=== PATIENT | female | born 1965 | race Caucasian/White ===

== ENCOUNTER 2016-09-05 19:10 | Emergency (ER) | payer OTHER ==
--- NOTE | 2016-09-05 19:56 | ER Document Report ---
ED Medical Screen (RME) - General Stated Complaint: HEAD INJURY/AT WORK Time seen by provider: 19:51 Mode of Arrival: Ambulatory Information source: Patient Notes: 51-year-old female presents to ED for facial and head pain. She states she tripped over a rug yesterday and face planted onto a concrete floor healing right between her eyes upon the bridge of her nose. With pain in her left hand and right upper arm. With back pain with a history of a back fusion. She states she started with a fever this afternoon up to 102 with a little bit of a cough. States she's been thrown up since this morning. She states she has a history of migraines. Discussed patient with Dr. Pratt. We will order a CT of the head face and cervical spine. I have greeted and performed a rapid initial assessment of this patient. A comprehensive ED assessment and evaluation of the patient, analysis of test results and completion of medical decision making process will be conducted by an additional ED providers. TRAVEL OUTSIDE OF THE [place] IN LAST 30 DAYS: No - Related Data Allergies/Adverse Reactions: No Known Allergies Allergy (Verified 07/05/12 20:25) Past Medical History Neurological Medical History: Reports: Hx Migraine Past Surgical History: Reports: Hx Appendectomy, Hx Section, Hx Orthopedic Surgery - Immunizations Hx Diphtheria, Pertussis, Tetanus Vaccination: Yes Physical Exam - Vital signs Vitals: Temp Pulse Resp BP Pulse Ox 100.5 F H 102 H 16 96/68 L 94 09/05/16 19:45 09/05/16 19:45 09/05/16 19:45 09/05/16 19:45 09/05/16 19:45 Course - Vital Signs Vital signs: Temp Pulse Resp BP Pulse Ox 100.5 F H 102 H 16 96/68 L 94 09/05/16 19:45 09/05/16 19:45 09/05/16 19:45 09/05/16 19:45 09/05/16 19:45
[2016-09-05 21:11] LABS: ABSOLUTE LYMPHOCYTES (AUTO) 0.7 10^3/uL (0.5-4.7); ABSOLUTE MONOCYTES (AUTO) 0.7 10^3/uL (0.1-1.4); ABSOLUTE NEUT (AUTO) 4.9 10^3/uL (1.7-8.2); BASOPHILS % (AUTO) 0.6 % (0-2); EOSINOPHILS % (AUTO) 0.6 % (0-6); HEMOGLOBIN 14.5 g/dL (12.0-15.5); HGB HCT DIFFERENCE -0.5; LYMPHOCYTES % (AUTO) 11.4 % (13-45); MEAN CORPUSCULAR HEMOGLOBIN 30.8 pg (27.0-33.4); MEAN CORPUSCULAR VOLUME 94 fl (80-97); MONOCYTES % (AUTO) 11.5 % (3-13); RED BLOOD COUNT 4.71 10^6/uL (3.72-5.28); RED CELL DISTRIBUTION WIDTH 13.8 % (11.5-14.0); SEGMENTED NEUTROPHILS % (AUTO) 75.9 % (42-78); WHITE BLOOD COUNT 6.5 10^3/uL (4.0-10.5)
[2016-09-05 21:24] LABS: ALANINE AMINOTRANSFERASE 17 U/L (9-52); ALBUMIN 4.7 g/dL (3.5-5.0); ALKALINE PHOSPHATASE 83 U/L (38-126); ANION GAP 11 (5-19); ASPARTATE AMINO TRANSFERASE 16 U/L (14-36); BILIRUBIN,TOTAL 0.6 mg/dL (0.2-1.3); BLOOD UREA NITROGEN 10 mg/dL (7-20); CALCIUM 9.8 mg/dL (8.4-10.2); CARBON DIOXIDE 23 mmol/L (22-30); CHLORIDE 105 mmol/L (98-107); CREATININE RESULT 0.81 mg/dL (0.52-1.25); GLUCOSE 102 mg/dL (75-110); SODIUM 139.2 mmol/L (137-145); TOTAL PROTEIN 7.7 g/dL (6.3-8.2)
[2016-09-06] MEDS ORDERED: KETOROLAC TROMETHAMINE INJ/PF 30 MG/1 ML SDV IV ONE (00:21)
[2016-09-06] MEDS ORDERED: PROCHLORPERAZINE EDISYLATE INJ 10 MG/2 ML VIAL IV ONE (00:21)
[2016-09-06] MEDS ORDERED: DIPHENHYDRAMINE HCL 50 MG/ML VIAL IV ONE (00:21)
--- NOTE | 2016-09-06 00:25 | ER Document Report ---
ED General - General Chief Complaint: Head injury, Headache Stated Complaint: HEAD INJURY/AT WORK Mode of Arrival: Ambulatory Notes: Patient is a 51-year-old female presents after she tripped and fell at work yesterday falling and hitting her head on concrete. She did not lose consciousness and was able to get up off the floor on her own. However since that time she has had 2 episodes of vomiting and notes that she has had a continuous, dull throbbing headache of her central forehead just above the bridge of her nose. She has been trying to treat this with ibuprofen at home with no improvement. Nothing worsens the symptoms. States she attempted to go to work today but could not secondary to the pain. No history of similar injuries in the past. She has not seen her primary care doctor regarding today' s concerns. She denies any focal weakness, numbness, confusion, or neck pain. TRAVEL OUTSIDE OF THE [place] IN LAST 30 DAYS: No - Related Data Allergies/Adverse Reactions: No Known Allergies Allergy (Verified 07/05/12 20:25) Past Medical History - General Information source: Patient - Social History Smoking Status: Never Smoker Frequency of alcohol use: None Drug Abuse: None Lives with: Spouse/Significant other Family History: Reviewed & Not Pertinent Patient has suicidal ideation: No Patient has homicidal ideation: No Neurological Medical History: Reports: Hx Migraine Renal/ Medical History: Denies: Hx Peritoneal Dialysis Past Surgical History: Reports: Hx Appendectomy, Hx Section, Hx Orthopedic Surgery - Immunizations Hx Diphtheria, Pertussis, Tetanus Vaccination: Yes Review of Systems - Review of Systems Notes: Constitutional: Negative for fever. Eyes: Negative for visual changes. ENT: Negative for facial injury Cardiovascular: Negative for chest injury. Respiratory: Negative for shortness of breath. Gastrointestinal: Negative for abdominal injury. Positive for vomiting Genitourinary: Negative for genital injury Musculoskeletal: Negative for back injury. Skin: Positive for laceration/abrasions. Neurological: Positive for head injury. Physical Exam - Vital signs Vitals: Temp Pulse Resp BP Pulse Ox 100.5 F H 102 H 16 96/68 L 94 09/05/16 19:45 09/05/16 19:45 09/05/16 19:45 09/05/16 19:45 09/05/16 19:45 Interpretation: Hypotensive, Tachycardic Notes: PHYSICAL EXAMINATION: GENERAL appears mildly uncomfortable but in no acute distress HEAD: Atraumatic, normocephalic. EYES: Pupils equal round and reactive to light, extraocular movements intact, sclera anicteric, conjunctiva are normal. ENT: nares patent, no oral pharyngeal trauma. No hemotympanum, no Gandara's sign , no raccoon eyes. NECK: No midline cervical spine tenderness. Patient able to move their head to 45 bilaterally without any discomfort. LUNGS: Breath sounds clear to auscultation bilaterally and equal. No wheezes rales or rhonchi. HEART: Regular rate and rhythm without murmurs. CHEST WALL: No ecchymosis over the chest wall. ABDOMEN: Soft, nontender, normoactive bowel sounds. No guarding, no rebound. No abdominal bruising EXTREMITIES: Normal range of motion, no pitting or edema. No long bone deformities. BACK: No midline spinal tenderness, step-offs, or deformities. NEUROLOGICAL: Face symmetric. Tongue protrudes midline. Extraocular motions intact. Pupils are 2 mm and equally reactive. Normal speech, normal gait. 5 out of 5 strength in both the distal and proximal upper and lower extremities bilaterally. Sensation is grossly intact throughout. Finger to nose testing normal. Pronator drift normal. PSYCH: Normal mood, normal affect. SKIN: Warm, Dry, normal turgor, no rashes or lesions noted. Course - Re-evaluation Re-evalutation: 09/06/16 00:24 Presentation of head trauma in an otherwise well-appearing patient. No focal neurologic deficits on exam, no evidence of basilar skull fracture on exam without evidence of hemotympanum, raccoon eyes, or periauricular hematoma. No papilledema. Patient is not on anticoagulation. GCS is 15. No loss of consciousness. Patient did have several episodes of vomiting and therefore CT the head was indicated and obtained. No evidence of intracranial bleed. For unclear reasons, in triage with CT of the face and cervical spine were ordered. Patient is cleared by both Clare and nexus criteria so I do not see why CT the cervical spine was ordered. Likewise she has no extensive visible trauma to the face so again I'm uncertain as to why CT the face was ordered. However both of these tests are noted to be negative. Labs were likewise ordered and noted to be normal. Chest x-ray is clear. Vitals are within normal limits. I suspect patient's symptoms are secondary to concussion versus migrainous headache in the setting of recent head trauma. Will proceed with a migraine cocktail and reassess. 09/06/16 01:51 Patient has had complete resolution of her headache at this time. She is tolerating oral intake without difficulty and has not had any further vomiting. At this time will discharge with return precautions and follow-up recommendations. Verbal discharge instructions given a the bedside and opportunity for questions given. Medication warnings reviewed. Patient is in agreement with this plan and has verbalized understanding of return precautions and the need for primary care follow-up in the next 24-72 hours. - Vital Signs Vital signs: Temp Pulse Resp BP Pulse Ox 98.7 F 85 18 102/63 94 09/06/16 02:13 09/06/16 02:13 09/06/16 02:13 09/06/16 02:13 09/06/16 02:13 - Laboratory Result Diagrams: 09/05/16 20:50 09/05/16 20:50 Laboratory results interpreted by me: 09/05/16 20:50 Plt Count 148 L Lymphocytes % 11.4 L - Diagnostic Test Radiology reviewed: Image reviewed, Reports reviewed Radiology results interpreted by me: 09/06/16 03:41 CT head: No acute intracranial bleed Discharge - Discharge Clinical Impression: Head trauma Qualifiers: Encounter type: initial encounter Qualified Code(s): S09.90XA - Unspecified injury of head, initial encounter Condition: Good Disposition: HOME, SELF-CARE Additional Instructions: You have likely sustained a contusion (bruise) to your head. If you had a CT scan done, it did not show any evidence of serious injury or bleeding. Symptoms to expect from a concussion include nausea, mild to moderate headache, difficulty concentrating or sleeping, and mild lightheadedness. These symptoms should improve over the next few days to weeks. Return to the emergency department or follow-up with your primary care doctor if your symptoms are not improving over this time. Signs of a more serious head injury include vomiting , severe headache, excessive sleepiness or confusion, and weakness or numbness in your face, arms or legs. Return immediately to the Emergency Department if you experience any of these more concerning symptoms. Rest, avoid strenuous physical or mental activity, and avoid activities that could potentially result in another head injury until all your symptoms from this head injury are completely resolved for at least 2-3 weeks. If you participate in sports, get cleared by your doctor or wellness trainer before returning to play. You may take ibuprofen or acetaminophen over the counter according to label instructions for mild headache or scalp soreness. Forms: Return to Work
[2016-09-06] MEDS ORDERED: FENTANYL CITRATE INJ/PF 100 MCG/2 ML AMPUL IV ONE (01:14)
[2016-09-06 02:14] VITALS: BP 102/63
== END 2016-09-06 02:00 | disposition home or self-care (01) ==
LOC: ER 19:10
DX: S09.90XA Unspecified injury of head, initial encounter (principal); T14.8 Other injury of unspecified body region; W19.XXXA Unspecified fall, initial encounter; Y99.0 Civilian activity done for income or pay; R11.10 Vomiting, unspecified; R51 Headache; R00.0 Tachycardia, unspecified; I95.9 Hypotension, unspecified
CPT/HCPCS: 99284; 96374; 96375; 36415; 85025; 80053; 71020; 70450; 70486; 72125; J1200; J3010; J1885; J0780

== ENCOUNTER → 2016-12-06 | Outpatient (CLI) | payer OTHER | LOC: LAB 20:43 | PROVIDERS: ATTEND Nurse Practitioner Acute Care | DX: R30.0 Dysuria (principal) | CPT/HCPCS: 87086; 87088 ==

== ENCOUNTER 2017-03-29 19:14 | Emergency (ER) | payer OTHER ==
--- NOTE | 2017-03-29 21:47 | ER Document Report ---
ED General - General Chief Complaint: Abscess Stated Complaint: SKIN PROBLEM Time Seen by Provider: 03/29/17 21:40 Mode of Arrival: Ambulatory Information source: Patient, Dr. Office Notes: Patient is a 51-year-old female comes to emergency room complaining of having a cellulitis and abscess in her right upper thigh and groin area. Patient went to a local walk-in clinic and saw Dr. Forrester who sent her immediately to the ER and did not work her up. Patient states that has been her right groin for the last 3 days and has been getting worse. She did attempt to pop a pimple in the area to start with. It is been spreading and getting worse. Patient has allergies to adhesive and also is in pain management for chronic back problems. She denies any other medical problems. TRAVEL OUTSIDE OF THE [place] IN LAST 30 DAYS: No - HPI Onset: Other - 3 days worth. Onset/Duration: Sudden, Gradual, Persistent Quality of pain: Achy, Throbbing. denies: No pain Severity: Moderate Pain Level: 3 Associated symptoms: Nausea, Weakness Exacerbated by: Walking, Other Relieved by: Other - Nothing Similar symptoms previously: No Recently seen / treated by doctor: Yes - Related Data Allergies/Adverse Reactions: No Known Allergies Allergy (Verified 07/05/12 20:25) Past Medical History - General Information source: Patient - Social History Smoking Status: Former Smoker Drug Abuse: None Lives with: Family Family History: None, Reviewed & Not Pertinent Patient has suicidal ideation: No Patient has homicidal ideation: No - Past Medical History Cardiac Medical History: Reports: None Pulmonary Medical History: Reports: None EENT Medical History: Reports: None Neurological Medical History: Reports: Hx Migraine Endocrine Medical History: Reports: None Renal/ Medical History: Reports: None. Denies: Hx Peritoneal Dialysis GI Medical History: Reports: None Musculoskeltal Medical History: Reports Other - Chronic back pain Skin Medical History: Denies Hx Cellulitis, Denies Hx MRSA Psychiatric Medical History: Reports: None, Hx Anxiety Traumatic Medical History: Reports: None Infectious Medical History: Reports: None Past Surgical History: Reports: Hx Appendectomy, Hx Section, Hx Orthopedic Surgery - Immunizations Immunizations up to date: Yes Hx Diphtheria, Pertussis, Tetanus Vaccination: Yes Review of Systems - Review of Systems Constitutional: No symptoms reported EENT: No symptoms reported Cardiovascular: No symptoms reported Respiratory: No symptoms reported Gastrointestinal: No symptoms reported Genitourinary: No symptoms reported Female Genitourinary: No symptoms reported Musculoskeletal: See HPI, Gout Skin: See HPI, Other - Induration on right thigh as well as cellulitis extension into the right groin Hematologic/Lymphatic: No symptoms reported Neurological/Psychological: No symptoms reported -: Yes All other systems reviewed and negative Physical Exam - Vital signs Vitals: Temp Pulse Resp BP Pulse Ox 97.7 F 85 17 115/61 97 03/29/17 19:45 03/29/17 19:45 03/29/17 19:45 03/29/17 19:45 03/29/17 19:45 Interpretation: Normal - Notes Notes: Patient is a 51-year-old who appears to be somewhat uncomfortable. Patient states that she was sent by her walk-in clinic physician because of the infection. She states that increasing in discomfort and pain. - General General appearance: Anxious In distress: None - Respiratory Respiratory status: No respiratory distress Chest status: Nontender Breath sounds: Normal. No: Rhonchi, Stridor, Wheezing Chest palpation: Normal - Cardiovascular Rhythm: Regular Heart sounds: Normal auscultation Murmur: No - Abdominal Inspection: Normal Distension: No distension Bowel sounds: Normal Tenderness: Nontender. No: McBurney's point, Brice's sign, Rebound - Extremities General upper extremity: Normal color, Normal ROM General lower extremity: Tender, Normal weight bearing. No: Normal inspection, Normal ROM Thigh: Tender, Dislocation. No: Nontender - Neurological Neuro grossly intact: Yes Cognition: Normal Orientation: AAOx4 Story Coma Scale Eye Opening: Spontaneous Story Coma Scale Verbal: Oriented Story Coma Scale Motor: Obeys Commands Halima Coma Scale Total: 15 Speech: Normal Cranial nerves: Normal - Skin Skin Temperature: Warm Skin Moisture: Moist Skin Color: Erythema, Other - Examination of patient's right thigh shows her to be an area approximately 4 cm long by 2-1/2 cm wide with a central lesion. There is moderate amount of tenderness to palpation there is an extended area of pure cellulitis ranging out in a circumferential about 12 cm from that original lesion described. Patient also has as you palpate the right groin area has noticeable lymphadenopathy present. That is tender to palpation.. negative: [place] Character of irregularity: Urticarial Irregularity with: Swelling, Tenderness, Warmth Course - Vital Signs Vital signs: Temp Pulse Resp BP Pulse Ox 98.1 F 72 16 103/63 95 03/29/17 23:58 03/29/17 23:58 03/29/17 23:58 03/29/17 23:58 03/29/17 23:58 - Laboratory Result Diagrams: 03/29/17 22:06 03/29/17 22:06 Laboratory results interpreted by me: 03/29/17 22:06 Chloride 108 H - Transfer of Care Notes: 03/29/17 23:10 I discussed the case with he reviewed the return of the labs in the history on patient's presentation and we are going to place her on Bactrim DS 2 tabs twice a day with Keflex 500 4 times daily and have her return to your in 24 -48 hours for a recheck. Procedures - Incision and Drainage Right Medial Groin Type: Complex, Single Anesthetic type: 1% Lidocaine mL's of anesthetic: 8 Blade size: 11 I&D procedure: Betadine prep applied, Shurclens applied Incision Method: Incision made by scalpel Amount/type of drainage: Moderate amount of thick whitish Notes: 03/30/17 00:37 After the I&D was performed to use the curved forceps to break up the loculations in the opening. There is still more drainage noted after using the curved forceps to break up the loculations. I then packed the area with iodoform probably about 6 inches. Discharge - Discharge Clinical Impression: Abscess Cellulitis Qualifiers: Site of cellulitis: other site Qualified Code(s): L03.818 - Cellulitis of other sites Condition: Stable Disposition: HOME, SELF-CARE Instructions: Abscess ([facility]), Cephalexin ([facility]), MRSA Cellulitis ([facility]), Trimethoprim-Sulfa ([facility]) Additional Instructions: Home and rest. Medication as prescribed. Use the warm moist compresses as we discussed 3-4 times a day. He may take a shower but do not sit in the bathtub or get in the leg ocean or stream. It was we discussed also that if for any reason the packing comes out it is okay just keep the moist compresses going. I would like to see back here in 48 hours for a recheck or sooner if it does not appear to be getting better or if should get worse. Prescriptions: Cephalexin Monohydrate [Keflex 500 mg Capsule] 500 mg PO Q6H 7 Days #28 capsule Fluconazole [Diflucan] 150 mg PO ONCE #2 tablet Sulfamethoxazole/Trimethoprim [Bactrim Ds Tablet] 2 tab PO BID 5 Days #20 tablet Referrals: SANTHOSH MCGOVERN FNP [Primary Care Provider] - Follow up as needed
[2017-03-29] MEDS ORDERED: CLINDAMYCIN PHOSPHATE INJ 300 MG/2 ML SDV IV ONE (21:48)
[2017-03-29 22:24] LABS: ABSOLUTE BASOPHILS # (AUTO) 0.1 10^3/uL (0.0-0.2); ABSOLUTE EOSINOPHILS # (AUTO) 0.3 10^3/uL (0.0-0.6); ABSOLUTE LYMPHOCYTES (AUTO) 2.9 10^3/uL (0.5-4.7); ABSOLUTE MONOCYTES (AUTO) 0.7 10^3/uL (0.1-1.4); ABSOLUTE NEUT (AUTO) 6.2 10^3/uL (1.7-8.2); BASOPHILS % (AUTO) 1.1 % (0-2); EOSINOPHILS % (AUTO) 2.8 % (0-6); HEMOGLOBIN 13.5 g/dL (12.0-15.5); HGB HCT DIFFERENCE 0.5; LYMPHOCYTES % (AUTO) 28.7 % (13-45); MEAN CORPUSCULAR HEMOGLOBIN 32.2 pg (27.0-33.4); MEAN CORPUSCULAR HGB CONC 33.8 g/dL (32.0-36.0); MEAN CORPUSCULAR VOLUME 95 fl (80-97); MONOCYTES % (AUTO) 7.2 % (3-13); RED CELL DISTRIBUTION WIDTH 13.3 % (11.5-14.0); SEGMENTED NEUTROPHILS % (AUTO) 60.2 % (42-78); WHITE BLOOD COUNT 10.3 10^3/uL (4.0-10.5)
[2017-03-29 22:45] LABS: ANION GAP 9 (5-19); BLOOD UREA NITROGEN 8 mg/dL (7-20); CALCIUM 9.6 mg/dL (8.4-10.2); CARBON DIOXIDE 25 mmol/L (22-30); CHLORIDE 108 mmol/L (98-107); CREATININE RESULT 0.69 mg/dL (0.52-1.25); GLUCOSE 88 mg/dL (75-110); POTASSIUM 3.6 mmol/L (3.6-5.0); SODIUM 142.4 mmol/L (137-145)
[2017-03-30] VITALS: BP 103/63
== END 2017-03-29 23:58 | disposition home or self-care (01) ==
LOC: ER 19:14
PROC: 0H9HXZZ Drainage of Right Upper Leg Skin, External Approach (ICD-10-PCS; principal; 2017-03-29)
DX: L02.415 Cutaneous abscess of right lower limb (principal); L03.818 Cellulitis of other sites; Z87.891 Personal history of nicotine dependence
CPT/HCPCS: 99283; 96365; 36415; 87070; 87205; 85025; 87075; 87077; 80048; 87186; 10060; A6266

== ENCOUNTER → 2017-06-14 | Outpatient (CLI) | payer OTHER ==
--- NOTE | 2017-06-15 16:38 | RADIOLOGY REPORT (SQ) ---
EXAM DESCRIPTION: MRI RT LOWER EXTREMITY WITHOUT COMPLETED DATE/TIME: 06/14/2017 9:09 pm REASON FOR STUDY: PAIN IN RIGHT ANKLE AND JOINTS OF RIGHT FOOT M25.571 PAIN IN RIGHT ANKLE AND JOIN TS OF RIGHT FOOT COMPARISON: None. TECHNIQUE: T1-weighted, T2-weighted, and gradient echo noncontrast multiplanar imaging of the right foot. LIMITATIONS: None. FINDINGS: MARROW SIGNAL: No marrow signal alteration. No occult fracture. No evidence for osteo ne crosis. JOINT EFFUSION: No significant effusions. PLANTAR FASCIA: Normal as visualized. TARSOMETATARSAL AND TOE ARTICULATIONS: Anatomic. Mild degenerative changes first metatarsal phalange al joint. INTERMETATARSAL SPACES AND PLANTAR PLATES: Intact. No soft tissue mass to suggest a neuroma. SOFT TISSUES: Well-circumscribed subcutaneous lesion between the heads of the 1st and 2nd metatarsals which is intermediate on T1 and heterogeneously bright on T2. Some internal septations. Lesion is superficial to the flexor tendons. OTHER: No other significant finding. IMPRESSION: Probable ganglion cyst. Recommend the patient return for fat sat T1 and T1 post contras t sequences to exclude other etiologies. TECHNICAL DOCUMENTATION: JOB ID: [id number] [employer]- All Rights Reserved
== END ==
LOC: RAD 19:59
PROVIDERS: ATTEND Podiatrist Foot Surgery
DX: M25.571 Pain in right ankle and joints of right foot (principal)

== ENCOUNTER → 2017-08-07 | Outpatient (CLI) | payer OTHER ==
[~2017-08-07] MED LIST: DIAZEPAM 5 MG TABLET ONE
--- NOTE | 2017-08-07 10:17 | RADIOLOGY REPORT (SQ) ---
EXAM DESCRIPTION: CT LUMBAR SPINE WITHOUT COMPLETED DATE/TIME: 08/07/2017 10:00 am REASON FOR STUDY: SPONDYLOSIS W/O MYELOPATHY OR RADICULOPATHY, LUMBAR REGION (M47.816) M47.812 SPON DYLOSIS W/O MYELOPATHY OR RADICULOPATHY, CERVICA M47.816 SPONDYLOSIS W/O MYELOPATHY OR RADICULOPATHY , LUMBAR COMPARISON: None. TECHNIQUE: Axial images acquired through the lumbar spine without intravenous contrast. Images revi ewed with lung, soft tissue and bone windows. Reconstructed coronal and sagittal MPR images reviewe d. All images stored on PACS. All CT scanners at this facility use dose modulation, iterative reconstruction, and/or weight based d osing when appropriate to reduce radiation dose to as low as reasonably achievable (ALARA). [facility]: Dose Right [facility]: CareDose [facility]: Dose Right [facility]: Teradose 4D [facility]: [employer] RADIATION DOSE: CT Rad equipment meets quality standard of care and radiation dose reduction techniq ues were employed. CTDIvol: 6.8 mGy. DLP: 209 mGy-cm. mGy. LIMITATIONS: None. FINDINGS: SEGMENTATION: 5 non rib-bearing lumbar vertebra. Scoliosis convex left. ALIGNMENT: Normal. VERTEBRAL BODIES: No fractures. No dislocation. No acute findings. DISCS: Study limited by lack of intrathecal contrast. L1-L2: No significant protrusions. No significant stenosis. L2-L3: Degenerative spondylosis and degenerative disc disease at L2-3. L3-L4: Changes of lumbar fusion with pedicle screws and rods in place. Disc interspacer in place L4-L5: Changes of lumbar fusion with pedicle screws and rods in place. Disc interspacer in place. L5-S1: Changes of lumbar fusion with pedicle screws and rods in place. Disc interspace are in place. . HARDWARE: Status post lumbar fusion L3-5. No hardware failure. VISUALIZED RIBS: No fractures. SOFT TISSUES: No significant or acute finding in adjacent soft tissues. OTHER: Nonobstructive calculus l upper pole right kidney. IMPRESSION: Status post lumbar fusion at L3-5. Degenerative spondylosis and degenerative disc disea se L2-3. TECHNICAL DOCUMENTATION: JOB ID: [id number] Quality ID # [id number]: Final reports with documentation of one or more dose reduction techniques (e.g., Au tomated exposure control, adjustment of the mA and/or kV according to patient size, use of iterative reconstruction technique) 2010 [employer]- All Rights Reserved
--- NOTE | 2017-08-07 11:52 | RADIOLOGY REPORT (SQ) ---
EXAM DESCRIPTION: MRI CERVICAL SPINE WITHOUT COMPLETED DATE/TIME: 08/07/2017 11:21 am REASON FOR STUDY: SPONDYLOSIS W/O MYELOPATHY OR RADICULOPATHY, CERVICAL REGION (M47.812) M47.812 SP ONDYLOSIS W/O MYELOPATHY OR RADICULOPATHY, CERVICA M47.816 SPONDYLOSIS W/O MYELOPATHY OR RADICULOPAT HY, LUMBAR COMPARISON: None. TECHNIQUE: Sagittal and Axial imaging includes T1, T2, STIR and gradient echo sequences. LIMITATIONS: Patient motion. FINDINGS: ALIGNMENT: Reversal of lordotic curve. VERTEBRAE: Intact. BONE MARROW: Normal. No marrow replacement or reactive changes. DISCS: Desiccation multiple levels. HARDWARE: None in the spine. CORD AND BASE OF BRAIN: Normal in size and signal intensity. SOFT TISSUES: No soft tissue masses. C1-C2: No significant spinal stenosis. C2-C3: No significant spinal stenosis or exit foraminal stenosis. C3-C4: Mild spinal stenosis due to disc osteophyte complex. C4-C5: Mild spinal stenosis due disc osteophyte complex. Mild neural foraminal narrowing bilaterally . C5-C6: Mild -moderate spinal stenosis. Moderate right and severe left neural foraminal narrowing. C6-C7: Mild -moderate spinal stenosis. Moderate neural foraminal narrowing bilaterally. C7-T1: No significant spinal stenosis or exit foraminal stenosis. UPPER THORACIC: Incompletely imaged. No significant spinal stenosis or exit foraminal stenosis. OTHER: No other significant finding. IMPRESSION: Spinal stenosis at multiple levels, more advanced at C5-6 and C6-7. TECHNICAL DOCUMENTATION: JOB ID: [id number] [employer]- All Rights Reserved
== END ==
LOC: RAD 09:37
DX: M47.812 Spondylosis without myelopathy or radiculopathy, cervical region (principal); M47.816 Spondylosis without myelopathy or radiculopathy, lumbar region
CPT/HCPCS: 72131; 72141

== ENCOUNTER 2017-09-04 06:32 | Day surgery (SDC) | payer OTHER ==
[~2017-09-04 06:32] MED LIST changes: +CEFAZOLIN 1 GM/D5W RTU 1 GM/50 ML RTUPB IV PRN; -DIAZEPAM 5 MG TABLET ONE; +DIPHENHYDRAMINE HCL 50 MG/ML VIAL ONE; +FENTANYL CITRATE INJ/PF 100 MCG/2 ML AMPUL ONE; +KETOROLAC TROMETHAMINE 60 MG/2 ML SDV ONE; +LIDOCAINE 2% INJ-PF (20 MG/ML) 10 ML AMPUL ONE; +MIDAZOLAM 2 MG/2 ML INJ ONE; +PROPOFOL INJ 200 MG/20 ML VIAL IV ONE
[2017-09-04] MEDS ORDERED: BUPIVACAINE HCL 0.5 % INJ/PF 30 ML SDV ONE (07:07)
[2017-09-04] MEDS ORDERED: LIDOCAINE 2% INJ (20 MG/ML) 20 ML MDV ONE (07:07)
[2017-09-04] MEDS ORDERED: LIDOCAINE 0.5% INJ-PF (5 MG/ML) 50 ML SDV ONE (07:07)
[2017-09-04] MEDS ORDERED: NORMAL SALINE INJ/PF 0.9% 10 ML SDV ONE (07:07)
[2017-09-04] MEDS ORDERED: POLYMYXIN B SULFATE INJ 500000 UNIT VIAL ONE (07:07)
[2017-09-04] MEDS ORDERED: BACITRACIN INJ 50,000 UNIT VIAL ONE (07:07)
[2017-09-04] MEDS ORDERED: RINGERS SOLUTION,LACTATED 1,000 ML IV PRN (07:27)
[2017-09-04] MEDS: BUPIVACAINE INJ/PF LIPOSOME/PF 266 MG/20 ML SDV ONE ×2 (08:45)
--- NOTE | 2017-09-04 10:29 | [facility] OPERATIVE REPORT E ---
[facility] Operative Report NAME: JOSE ERWIN AGE: 52Y DATE OF SURGERY: 09/04/2017 ROOM: PREOPERATIVE DIAGNOSIS: SOFT TISSUE MASS PLANTAR ASPECT, RIGHT FOOT. POSTOPERATIVE DIAGNOSIS: SOFT TISSUE MASS, PROBABLE CYST, PLANTAR ASPECT, RIGHT FOOT. OPERATION: Excision of mass plantar aspect, right foot. SURGEON: LAM HENRIQUEZ DPM FOUR SLIDE MACHINE SETTER: Albaro Ohara DPM PROCEDURE: Following induction of IV regional local anesthesia, the right foot and leg was prepped and draped in the usual sterile manner. A pneumatic tourniquet was placed around the right ankle and inflated to 250 mmHg after exsanguination of the limb with the Esmarch bandage. The following surgical procedure was then performed: Excision of soft tissue mass, plantar aspect, right foot. Attention was directed to the plantar aspect of the right foot over the first metatarsal head where a mass could be palpated. The incision was made directly over the mass. It was approximately 5 cm in length. The incision was deepened via blunt dissection. All bleeders were clamped and Bovied as necessary for the purpose of hemostasis. Creamy white exudate started coming out of the mass. The mass was totally encapsulated. It was freed from its soft tissue attachments via sharp dissection utilizing Iris scissors. The mass measured 2.5 cm x 2 cm x approximately 0.8 cm in thickness. It was filled with a creamy white exudate like cottage cheese. This mass was sent for pathology. The site was inspected and there was no evidence of any other abnormal tissue. The site was then flushed with copious amounts of an antibacterial saline solution. The subcutaneous tissue was then coapted and maintained with a combination of 3-0 Vicryl and 4-0 Vicryl simple interrupted sutures. The incision was then injected with 9 mL of EXPAREL. The skin was then coapted and maintained utilizing horizontal mattress sutures of 5-0 nylon. A dry sterile dressing was then applied consisting of Joe silk, 4x4s, Conform, Kerlix, and Coban. The pneumatic tourniquet was released. It was noted that all digits were warm and viable, and the patient was transferred to the recovery room. DICTATING PHYSICIAN: LAM HENRIQUEZ DPM. [id number] PHY#: [id number] ID: [id number] JOB#: [id number] ACCT: [id number] cc:LAM HENRIQUEZ, DPM > ADALID
--- NOTE | 2017-09-04 10:39 | SURGICARE DISCHARGE SUMMARY E ---
[facility] Discharge Summary NAME: JOSE ERWIN AGE: 52Y ADMITTED: 09/04/2017 DISCHARGED: 09/04/2017 SURGICAL PROCEDURE: Excision of soft tissue mass, plantar aspect, right foot. POSTOPERATIVE DIAGNOSIS: Soft tissue mass, possible cyst, plantar aspect, right foot. SURGEON: Lam Bello DPM DELI BAKERY CLERK: Albaro Ohara DPM HOSPITAL COURSE: Patient was admitted to the [facility] with a chief complaint of a painful mass under her right foot. An ultrasound was performed. It was noted that there was an encapsulated mass. It did not appear to be a ganglion but was unsure what it was. The patient then went for a MRI which was positive, again, for a cyst but, again, not a ganglion. Since this mass was causing so much, the patient desired to have it surgically removed. She underwent the above surgical procedure without any complication and was transferred to the recovery room. Patient was discharged with an ice pack, a surgical shoe, postoperative instructions including no weightbearing on the surgical foot, and postoperative prescriptions for Percocet 5/325 mg, #60. She was given a followup appointment in the doctor's office in 1 week, and the patient was discharged from [facility]. DICTATING PHYSICIAN: LAM BELLO D.P.M. [id number] PHY#: [id number] ID: [id number] JOB#: [id number] ACCT: [id number] cc:LAM BELLO DPM >
== END 2017-09-04 10:19 | disposition home or self-care (01) ==
LOC: SC 06:32
PROVIDERS: ATTEND Podiatrist Foot Surgery
PROC: 0JBQ0ZZ Excision of Right Foot Subcutaneous Tissue and Fascia, Open Approach (ICD-10-PCS; principal; 2017-09-04 07:30)
DX: D21.21 Benign neoplasm of connective and other soft tissue of right lower limb, including hip (principal); G43.909 Migraine, unspecified, not intractable, without status migrainosus; F32.9 Major depressive disorder, single episode, unspecified; Z79.899 Other long term (current) drug therapy
CPT/HCPCS: 88304 ×2; 28039; J2250; J3490 ×6; J0690; J1200; J3010; J2704; C9290; 1470; J1885

== ENCOUNTER 2018-03-23 12:16 | Emergency (ER) | payer OTHER ==
[2018-03-23] MEDS ORDERED: ONDANSETRON HCL INJ/PF 4 MG/2 ML SDV IV ONE ×3 (12:40→14:00)
[2018-03-23] MEDS ORDERED: NORMAL SALINE 1000 ML 1,000 ML IV ONE (12:40)
[2018-03-23] MEDS ORDERED: HYDROMORPHONE HCL INJ/PF 2 MG/ML AMPULE IV ONE (12:41)
--- NOTE | 2018-03-23 12:42 | ER Document Report ---
ED Medical Screen (RME) - General Chief Complaint: Flank Pain Stated Complaint: FLANK PAIN Time Seen by Provider: 03/23/18 12:40 Mode of Arrival: Ambulatory Information source: Patient Notes: This is a 52-year-old female with a history of chronic back pain, chronic migraines who presents with left flank pain radiating into the groin. Patient states that the pain started yesterday. Patient denies any fever or chills. Patient in obvious discomfort and is writhing around in triage. Her surgical history includes hysterectomy. She is not allergic to any medicines. TRAVEL OUTSIDE OF THE [place] IN LAST 30 DAYS: No - Related Data Allergies/Adverse Reactions: adhesive tape Allergy (Verified 03/23/18 12:17) Blisters Past Medical History - Past Medical History Cardiac Medical History: Denies: Hx Heart Attack, Hx Hypertension Pulmonary Medical History: Denies: Hx Asthma Neurological Medical History: Reports: Hx Migraine. Denies: Hx Cerebrovascular Accident, Hx Seizures Renal/ Medical History: Denies: Hx Peritoneal Dialysis GI Medical History: Denies: Hx Hepatitis, Hx Hiatal Hernia, Hx Ulcer Skin Medical History: Denies Hx Cellulitis, Denies Hx MRSA Psychiatric Medical History: Reports: Hx Anxiety Infectious Medical History: Denies: Hx Hepatitis Past Surgical History: Reports: Hx Appendectomy, Hx Section, Hx Hysterectomy, Hx Orthopedic Surgery. Denies: Hx Mastectomy, Hx Open Heart Surgery, Hx Pacemaker - Immunizations Immunizations up to date: Yes Hx Diphtheria, Pertussis, Tetanus Vaccination: Yes Physical Exam - Vital signs Vitals: Temp Pulse Resp BP Pulse Ox 98.2 F 93 22 H 135/98 H 99 03/23/18 12:20 03/23/18 12:20 03/23/18 12:20 03/23/18 12:20 03/23/18 12:20 Course - Vital Signs Vital signs: Temp Pulse Resp BP Pulse Ox 98.2 F 93 22 H 135/98 H 99 03/23/18 12:20 03/23/18 12:20 03/23/18 12:20 03/23/18 12:20 03/23/18 12:20 Doctor's Discharge - Discharge Referrals: SANTHOSH MCGOVERN FNP [Primary Care Provider] - Follow up as needed
[2018-03-23 13:07] LABS: ABSOLUTE EOSINOPHILS # (AUTO) 0.1 10^3/uL (0.0-0.6); ABSOLUTE LYMPHOCYTES (AUTO) 1.3 10^3/uL (0.5-4.7); ABSOLUTE MONOCYTES (AUTO) 0.6 10^3/uL (0.1-1.4); ABSOLUTE NEUT (AUTO) 10.9 10^3/uL (1.7-8.2); BASOPHILS % (AUTO) 0.3 % (0-2); EOSINOPHILS % (AUTO) 0.9 % (0-6); HEMATOCRIT 42.1 % (36.0-47.0); LYMPHOCYTES % (AUTO) 9.8 % (13-45); MEAN CORPUSCULAR HGB CONC 33.2 g/dL (32.0-36.0); MEAN CORPUSCULAR VOLUME 94 fl (80-97); MONOCYTES % (AUTO) 4.3 % (3-13); PLATELET COUNT 212 10^3/uL (150-450); RED BLOOD COUNT 4.51 10^6/uL (3.72-5.28); RED CELL DISTRIBUTION WIDTH 14.1 % (11.5-14.0); SEGMENTED NEUTROPHILS % (AUTO) 84.7 % (42-78); TOTAL CELLS COUNTED % (AUTO) 100 %; WHITE BLOOD COUNT 12.8 10^3/uL (4.0-10.5)
[2018-03-23] MEDS ORDERED: MORPHINE SULFATE 10 MG/ML INJ IV ONE ×3 (13:12→15:23)
[2018-03-23] MEDS ORDERED: KETOROLAC TROMETHAMINE INJ/PF 30 MG/1 ML SDV IV ONE (13:12)
--- NOTE | 2018-03-23 13:20 | ER Document Report ---
ED GI/ - General Mode of Arrival: Ambulatory Information source: Patient TRAVEL OUTSIDE OF THE [place] IN LAST 30 DAYS: No <YOLANDE GRAHAM - Last Filed: 03/23/18 13:34> <TOVA WARREN - Last Filed: 03/23/18 15:22> - General Chief Complaint: Flank Pain Stated Complaint: FLANK PAIN Time Seen by Provider: 03/23/18 12:40 Notes: 52-year-old female that presents to the emergency department today with complaints of left flank pain that began a few days ago. Patient states the pain became very severe last night and has progressed from the left flank down into the left lower quadrant. Patient states she also feels that she has pain radiating into her left vaginal area mainly in the labia. Patient states when the pain sets in she is unable to get comfortable. (YOLANDE GRAHAM) The patient normally takes oxycodone 15 mg 4 times daily, and Nucynta 100 mg extended release twice daily for chronic pain management. (TOVA WARREN) - Related Data Allergies/Adverse Reactions: adhesive tape Allergy (Verified 03/23/18 12:17) Blisters Past Medical History - General Information source: Patient - Social History Smoking Status: Former Smoker Cigarette use (# per day): No Frequency of alcohol use: None Drug Abuse: None Lives with: Family Family History: None, Reviewed & Not Pertinent Patient has suicidal ideation: No Patient has homicidal ideation: No Neurological Medical History: Reports: Hx Migraine Psychiatric Medical History: Reports: Hx Anxiety Past Surgical History: Reports: Hx Appendectomy, Hx Section, Hx Hysterectomy, Hx Neurologic Surgery - Lumbar fusion, Hx Orthopedic Surgery - Immunizations Immunizations up to date: Yes Hx Diphtheria, Pertussis, Tetanus Vaccination: Yes <YOLANDE GRAHAM - Last Filed: 03/23/18 13:34> Past Surgical History: Reports: Hx Orthopedic Surgery <TOVA WARREN - Last Filed: 03/23/18 15:22> Review of Systems - Review of Systems Constitutional: No symptoms reported EENT: No symptoms reported Cardiovascular: No symptoms reported Respiratory: No symptoms reported Gastrointestinal: No symptoms reported Genitourinary: See HPI, Flank pain - left Female Genitourinary: No symptoms reported Musculoskeletal: No symptoms reported Skin: No symptoms reported Hematologic/Lymphatic: No symptoms reported Neurological/Psychological: No symptoms reported -: Yes All other systems reviewed and negative <YOLANDE GRAHAM - Last Filed: 03/23/18 13:34> Physical Exam <SANTOSYOLANDE - Last Filed: 03/23/18 13:34> <TOVA WARREN - Last Filed: 03/23/18 15:22> - Vital signs Vitals: Temp Pulse Resp BP Pulse Ox 98.2 F 93 22 H 135/98 H 99 03/23/18 12:20 03/23/18 12:20 03/23/18 12:20 03/23/18 12:20 03/23/18 12:20 - Notes Notes: Physical Exam: General: Alert, appears well. HEENT: Normocephalic. Atraumatic. PERRL. Extraocular movements intact. Oropharynx clear. Neck: Supple. Non-tender. Respiratory: No respiratory distress. Clear and equal breath sounds bilaterally. Cardiovascular: Regular rate and rhythm. Abdominal: LLQ ttp. No distension. Normal Bowel Sounds. Back: Left flank tenderness with palpation. No deformity or step off. Extremities: Moves all four extremities. Upper extremities: Normal inspection. Normal ROM. Lower extremities: Normal inspection. No edema. Normal ROM. Neurological: Normal cognition. AAOx4. Normal speech. Psychological: Normal affect. Normal Mood. Skin: Warm. Dry. Normal color. (YOLANDE GRAHAM) Course - Laboratory Result Diagrams: 03/23/18 12:35 03/23/18 12:35 <YOLANDE GRAHAM - Last Filed: 03/23/18 13:34> - Laboratory Result Diagrams: 03/23/18 12:35 03/23/18 12:35 - Diagnostic Test Radiology reviewed: Image reviewed, Reports reviewed - Renal CT shows a 3 mm stone in the distal left ureter near the UVJ. There is moderate hydronephrosis and hydroureter. <TOVA WARREN - Last Filed: 03/23/18 15:22> - Vital Signs Vital signs: Temp Pulse Resp BP Pulse Ox 98.2 F 93 22 H 135/98 H 99 03/23/18 12:20 03/23/18 12:20 03/23/18 12:20 03/23/18 12:20 03/23/18 12:20 - Laboratory Laboratory results interpreted by me: 0903/23/18 03/23/18 12:35 12:35 12:35 WBC 12.8 H RDW 14.1 H Seg Neutrophils % 84.7 H Lymphocytes % 9.8 L Absolute Neutrophils 10.9 H Chloride 109 H Carbon Dioxide 21 L Est GFR (Non-Af Amer) 59 L Glucose 132 H Direct Bilirubin 0.5 H Urine Blood MODERATE H Discharge <YOLANDE GRAHAM - Last Filed: 03/23/18 13:34> <TOVA WARREN - Last Filed: 03/23/18 15:22> - Discharge Clinical Impression: Ureteral stone with hydronephrosis, Renal colic on left side Condition: Stable Disposition: HOME, SELF-CARE Additional Instructions: Kidney Stone You are passing a kidney stone. These stones are usually due to increased calcium or uric acid concentrations in your urine. Stones within the kidney itself are not painful. The pain occurs as the stone leaves the kidney to pass down the long tube, called the ureter, leading to the bladder. If the stone is small, it will usually pass by itself. Most patients can pass the stone at home. You will usually receive medications for pain, nausea or vomiting, and sometimes a medication to assist in passing the kidney stone. However, if the pain is very severe or if vomiting prevents you from taking oral pain medications, you may need to return for further treatment. Drink three or four quarts of fluids per day. You will be given pain medication (if needed) and urine strainers. Strain all your urine to see if the stone passes. If your doctor has asked you to bring the stone in for analysis, return with the stone once it has passed. Return if pain or vomiting become severe, if you develop a high fever, if you are unable to pass your urine, or if other unusual symptoms occur. You have a 3 mm stone in the distal left ureter, very close to the bladder. You should drink plenty of fluids and strain your urine. Continue your regular pain medications. Add ibuprofen 800 mg every 8 hours, or 2 Aleve every 12 hours. Take Flomax once daily starting tomorrow until you pass the stone. Follow-up with your doctor or a local urologist if you do not improve in the next few days. RETURN TO THE EMERGENCY ROOM IF ANY NEW OR WORSENING SYMPTOMS. Prescriptions: Ondansetron [Zofran Odt 4 mg Tablet] 1 - 2 tab PO Q4H PRN #10 tab.rapdis PRN Reason: For Nausea/Vomiting Tamsulosin HCl [Flomax 0.4 mg Cap.sr] 0.4 mg PO DAILY #7 cap.sr.24h Referrals: SANTHOSH MCGOVERN FNP [Primary Care Provider] - Follow up as needed [facility] - Follow up as needed Scribe Attestation: 03/23/18 15:07 I personally performed the services described in the documentation, reviewed and edited the documentation which was dictated to the scribe in my presence, and it accurately records my words and actions. (TOVA WARREN) Scribe Documentation - Scribe Written by Adamaris:: Adamaris Hope, 03/23/2018 1339 acting as scribe for :: Fareed <YOLANDE GRAHAM - Last Filed: 03/23/18 13:34>
[2018-03-23 13:24] LABS: ALANINE AMINOTRANSFERASE 23 U/L (9-52); ALBUMIN 4.4 g/dL (3.5-5.0); ALKALINE PHOSPHATASE 112 U/L (38-126); ANION GAP 10 (5-19); ASPARTATE AMINO TRANSFERASE 18 U/L (14-36); BILIRUBIN,DIRECT 0.5 mg/dL (0.0-0.4); BILIRUBIN,TOTAL 0.6 mg/dL (0.2-1.3); BLOOD UREA NITROGEN 17 mg/dL (7-20); CALCIUM 9.8 mg/dL (8.4-10.2); CARBON DIOXIDE 21 mmol/L (22-30); CHLORIDE 109 mmol/L (98-107); GLUCOSE 132 mg/dL (75-110); SODIUM 140.4 mmol/L (137-145); TOTAL PROTEIN 7.5 g/dL (6.3-8.2)
[2018-03-23 13:31] LABS: APPEARANCE,URINE CLOUDY; BILIRUBIN,URINE NEGATIVE (NEGATIVE); COLOR,URINE YELLOW; GLUCOSE, URINE NEGATIVE (NEGATIVE); KETONES,URINE NEGATIVE (NEGATIVE); LEUKOCYTE ESTERASE,URINE NEGATIVE (NEGATIVE); NITRITE,URINE NEGATIVE (NEGATIVE); PROTEIN,URINE NEGATIVE (NEGATIVE); UROBILINOGEN,URINE NEGATIVE mg/dL (<2.0)
--- NOTE | 2018-03-23 14:06 | RADIOLOGY REPORT (SQ) ---
EXAM DESCRIPTION: CT LTD RENAL STONE PROTOCOL ON COMPLETED DATE/TIME: 03/23/2018 1:55 pm REASON FOR STUDY: left flank pain COMPARISON: None. TECHNIQUE: CT scan of the abdomen and pelvis performed without intravenous or oral contrast. Images reviewed with lung, soft tissue, and bone windows. Reconstructed coronal and sagittal MPR images revi ewed. All images stored on PACS. All CT scanners at this facility use dose modulation, iterative reconstruction, and/or weight based d osing when appropriate to reduce radiation dose to as low as reasonably achievable (ALARA). [facility]: Dose Right [facility]: CareDose [facility]: Dose Right [facility]: Teradose 4D [facility]: [employer] RADIATION DOSE: CT Rad equipment meets quality standard of care and radiation dose reduction techniq ues were employed. CTDIvol: 6.6 mGy. DLP: 346 mGy-cm.mGy. LIMITATIONS: None. FINDINGS: LOWER CHEST: No significant findings. No nodules or infiltrates. NON-CONTRASTED LIVER, SPLEEN, ADRENALS: Evaluation limited by lack of IV contrast. No identified sign ificant masses. PANCREAS: No masses. No peripancreatic inflammatory changes. GALLBLADDER: Gallstones. RIGHT KIDNEY AND URETER: Minimal nonobstructive nephrolithiasis. LEFT KIDNEY AND URETER: Moderate hydronephrosis with renal edema and perinephric stranding. Left ure ter dilated to the level of a 3 mm stone which lies just proximal to the UVJ within the distal ureter . AORTA AND RETROPERITONEUM: No aneurysm. No retroperitoneal masses or adenopathy. BOWEL AND PERITONEAL CAVITY: No obvious masses or inflammatory changes. No free fluid. APPENDIX: Surgically absent. PELVIS, BLADDER, AND ABDOMINAL WALL:No abnormal masses. No free fluid. Bladder normal. BONES: No significant findings. OTHER: No other significant finding. IMPRESSION: 1. Obstructive left uropathy. Moderate hydronephrosis due to a distal ureteral 3 mm ob structing stone. TECHNICAL DOCUMENTATION: JOB ID: [id number] Quality ID # [id number]: Final reports with documentation of one or more dose reduction techniques (e.g., Au tomated exposure control, adjustment of the mA and/or kV according to patient size, use of iterative reconstruction technique) 2010 [employer]- All Rights Reserved Reading location - IP/workstation name: [email or web address]
[2018-03-23] MEDS ORDERED: TAMSULOSIN HCL 0.4 MG CAP.SR.24H PO ONE (15:05)
[2018-03-23 15:32] VITALS: BP 102/57
== END 2018-03-23 15:37 | disposition home or self-care (01) ==
LOC: ER 12:16
DX: N13.2 Hydronephrosis with renal and ureteral calculous obstruction (principal); G89.29 Other chronic pain; Z79.891 Long term (current) use of opiate analgesic; Z91.048 Other nonmedicinal substance allergy status; Z87.891 Personal history of nicotine dependence
CPT/HCPCS: 96376; 99284; 96361; 96374; 96375; 36415; 85025; 80053; 81001; 76380; J1885; J2270; J1170; J2405

== ENCOUNTER 2018-03-24 21:58 | Inpatient (IN) | payer OTHER ==
[2018-03-25] MEDS ORDERED: CEFTRIAXONE INJ 1000 MG VIAL IV ONE (02:19)
[2018-03-25] MEDS ORDERED: HYDROMORPHONE HCL INJ/PF 2 MG/ML AMPULE IV ONE ×3 (02:19→06:02)
[2018-03-25] MEDS ORDERED: VANCOMYCIN HCL INJ 1000 MG VIAL IV ONE (02:19)
[2018-03-25 03:27] LABS: ABSOLUTE BASOPHILS # (AUTO) 0.1 10^3/uL (0.0-0.2); ABSOLUTE EOSINOPHILS # (AUTO) 0.3 10^3/uL (0.0-0.6); ABSOLUTE LYMPHOCYTES (AUTO) 2.6 10^3/uL (0.5-4.7); ABSOLUTE MONOCYTES (AUTO) 1.1 10^3/uL (0.1-1.4); ABSOLUTE NEUT (AUTO) 11.7 10^3/uL (1.7-8.2); BASOPHILS % (AUTO) 0.7 % (0-2); HEMOGLOBIN 13.5 g/dL (12.0-15.5); LYMPHOCYTES % (AUTO) 16.3 % (13-45); MEAN CORPUSCULAR HEMOGLOBIN 31.8 pg (27.0-33.4); MEAN CORPUSCULAR HGB CONC 33.8 g/dL (32.0-36.0); MEAN CORPUSCULAR VOLUME 94 fl (80-97); MONOCYTES % (AUTO) 6.8 % (3-13); PLATELET COUNT 205 10^3/uL (150-450); RED BLOOD COUNT 4.25 10^6/uL (3.72-5.28); SEGMENTED NEUTROPHILS % (AUTO) 74.2 % (42-78); TOTAL CELLS COUNTED % (AUTO) 100 %; WHITE BLOOD COUNT 15.8 10^3/uL (4.0-10.5)
[2018-03-25 04:09] LABS: ANION GAP 7 (5-19); BLOOD UREA NITROGEN 12 mg/dL (7-20); CALCIUM 9.3 mg/dL (8.4-10.2); CARBON DIOXIDE 27 mmol/L (22-30); CHLORIDE 107 mmol/L (98-107); GLUCOSE 108 mg/dL (75-110); POTASSIUM 3.6 mmol/L (3.6-5.0); SODIUM 141.4 mmol/L (137-145)
--- NOTE | 2018-03-25 04:39 | ER Document Report ---
ED General - General Chief Complaint: Possible Kidney Stone Stated Complaint: NECK PAIN Time Seen by Provider: 03/25/18 02:08 Notes: Patient is a 52-year-old female who presents with complaint of 2 separate complaints. First complaint is she still has some residual flank pain on the left side relation to kidney stones she was diagnosed with yesterday. She said the main reason when she came back is because she has pain and swelling and redness over the posterior aspect of her neck and into her head. When she was seen yesterday she was also seen for some crusting lesions in her scalp. At that time she did not have a large amount of solution swelling therefore is thought to most likely not be infectious. Patient says over last 24 hours the back of her head neck has become very swollen and indurated and red. Subjective fevers at home. Some nausea. She spiked a fever today of 101.2 at home. TRAVEL OUTSIDE OF THE [place] IN LAST 30 DAYS: No - Related Data Allergies/Adverse Reactions: adhesive tape Allergy (Verified 03/23/18 12:17) Blisters Past Medical History - Social History Smoking Status: Unknown if Ever Smoked Frequency of alcohol use: None Drug Abuse: None Family History: None, Reviewed & Not Pertinent Patient has suicidal ideation: No Patient has homicidal ideation: No - Past Medical History Cardiac Medical History: Denies: Hx Heart Attack, Hx Hypertension Pulmonary Medical History: Denies: Hx Asthma Neurological Medical History: Reports: Hx Migraine. Denies: Hx Cerebrovascular Accident, Hx Seizures Renal/ Medical History: Denies: Hx Peritoneal Dialysis GI Medical History: Denies: Hx Hepatitis, Hx Hiatal Hernia, Hx Ulcer Skin Medical History: Denies Hx Cellulitis, Denies Hx MRSA Psychiatric Medical History: Reports: Hx Anxiety Infectious Medical History: Denies: Hx Hepatitis Past Surgical History: Reports: Hx Appendectomy, Hx Section, Hx Hysterectomy, Hx Neurologic Surgery - Lumbar fusion, Hx Orthopedic Surgery. Denies: Hx Mastectomy, Hx Open Heart Surgery, Hx Pacemaker - Immunizations Immunizations up to date: Yes Hx Diphtheria, Pertussis, Tetanus Vaccination: Yes Review of Systems - Review of Systems Notes: My Normal Review Basic REVIEW OF SYSTEMS: CONSTITUTIONAL : Subjective fever EENT: Redness and swelling to the back of the neck and head. CARDIOVASCULAR: Denies chest pain. RESPIRATORY: Denies cough, cold, or chest congestion. Denies shortness of breath, difficulty breathing, or wheezing. GASTROINTESTINAL: Left flank pain. GENITOURINARY: Dark urine. FEMALE GENITOURINARY: Denies vaginal bleeding, abnormal or irregular periods. MUSCULOSKELETAL: Denies neck or back pain or joint pain or swelling. SKIN: Denies rash or skin lesions. NEUROLOGICAL: Denies altered mental status or loss of consciousness. Denies headache. Denies weakness or paralysis or loss of use of either side. Denies problems with gait or speech. Denies sensory or motor loss. ALL OTHER SYSTEMS REVIEWED AND NEGATIVE. Physical Exam - Vital signs Vitals: Temp Pulse Resp BP Pulse Ox 99.0 F 132 H 18 102/64 96 03/24/18 22:07 03/24/18 22:07 03/24/18 22:07 03/24/18 22:07 03/24/18 22:07 - Notes Notes: General Appearance: Well nourished, alert, cooperative, no acute distress, moderate obvious discomfort. Vitals: reviewed, See vital signs table. Head: Patient has significant swelling redness to the posterior scalp going down to the left posterior aspect of the neck. There is significant induration and redness but no fluctuance. Eyes: PERRL, EOMI, Conjuctiva clear Mouth: No decreasd moisture Throat: No tonsillar inflammation, No airway obstruction, No lymphadenopathy Neck: Supple, induration and redness to the left posterior aspect of the neck. Lungs: No wheezing, No rales, No rhonci, No accessory muscle use, good air exchange bilaterally. Heart: Normal rate, Regular rythm, No murmur, no rub Abdomen: Normal BS, soft, No rigidity, mild left-sided abdominal tenderness to palpation, No guarding, no rebound, no abdominal masses, no organomegaly Extremities: strength 5/5 in all extremities, good pulses in all extremities, no swelling or tenderness in the extremities, no edema. Skin: warm, dry, appropriate color, no rash Neuro: speech clear, oriented x 3, normal affect, responds appropriately to questions. Course - Re-evaluation Re-evalutation: 03/25/18 06:06 Patient's pain is improving some with the Dilaudid but still she has a painless of her neck. CT scan shows no evidence of abscess but I suspect that she could easily progress to an abscess within the next 24-48 hours due to the significant of induration and the fact that the redness and swelling of occurred quickly over the last 24 hours. I have given dose of vancomycin and Rocephin. Her urinalysis is negative. Is no signs of infection in conjunction with her kidney stone. Her kidney stone pain is actually fairly well controlled with her home medications and that seems to be less of an issue at this time. The main issue for admission is the infection affecting the posterior aspect of her neck. I have spoken with the hospitalist, Dr. Frye, who agrees to evaluate the patient for admission. Dictation of this chart was performed using voice recognition software; therefore, there may be some unintended grammatical errors. - Vital Signs Vital signs: Temp Pulse Resp BP Pulse Ox 99.0 F 132 H 18 102/64 96 03/24/18 22:07 03/24/18 22:07 03/24/18 22:07 03/24/18 22:07 03/24/18 22:07 - Laboratory Result Diagrams: 03/25/18 02:55 03/25/18 02:55 Laboratory results interpreted by me: 03/25/18 03/25/18 02:20 02:55 WBC 15.8 H Absolute Neutrophils 11.7 H Urine Blood LARGE H Discharge - Discharge Clinical Impression: Renal colic on left side Cellulitis Qualifiers: Site of cellulitis: neck Qualified Code(s): L03.221 - Cellulitis of neck Condition: Stable Disposition: ADMITTED OBSERVATION Admitting Provider: Hospitalist Unit Admitted: Medical Floor Referrals: SANTHOSH MCGOVERN FNP [Primary Care Provider] - Follow up as needed
--- NOTE | 2018-03-25 04:42 | RADIOLOGY REPORT (SQ) ---
EXAM DESCRIPTION: CT NECK CHEST WITH IV CONTRAST COMPLETED DATE/TME: 03/25/2018 02:27 CLINICAL HISTORY: 52 years, Female, neck swelling, cellulitis vs. abscess CREAT 0.99 COMPARISON: None. TECHNIQUE: Axial CT images of the neck soft tissues obtained following the uncomplicated intravenous administration of 75 mL Omnipaque 350. Sagittal and coronal reformatted images available. All CT scanners at this facility use dose modulation, iterative reconstruction, and/or weight based dosing when appropriate to reduce radiation dose to as low as reasonably achievable (ALARA). [facility]: Dose Right [facility]: CareDose [facility]: Dose Right [facility]: Teradose 4D [facility]: [employer] FINDINGS: Degenerative change of the visualized cervical spine. No acute abnormality identified within the intracranial contents. Visualized ribs are intact. No pneumothorax in the visualized lung apices. Orbits and globes are unremarkable. No abnormalities in the pharyngeal mucosal space, parapharyngeal space, or retropharyngeal space. No abnormalities visceral space. No definite abnormalities of the epiglottis. Visualized thyroid gland is unremarkable. Postoperative change in the left neck. No lymphadenopathy identified. No abnormalities of the parotid or submandibular glands. The tongue base is symmetric without enhancing mass. No abnormalities in the subcutaneous soft tissues of the face. Facial bones are intact. Paranasal sinuses and mastoid air cells are well aerated. There is fat stranding within the subcutaneous soft tissue of the posterolateral left neck. No well-circumscribed fluid collection. IMPRESSION: 1. Inflammatory change in the subcutaneous soft tissues of the posterolateral left neck. These findings are suggestive of cellulitis. No well-circumscribed fluid collection to suggest abscess formation. TECHNICAL DOCUMENTATION: Quality ID # 436: Final reports with documentation of one or more dose reduction techniques (e.g., Automated exposure control, adjustment of the mA and/or kV according to patient size, use of iterative reconstruction technique) 2010 [employer]- All Rights Reserved
[2018-03-25 05:31] LABS: APPEARANCE,URINE CLOUDY; BILIRUBIN,URINE NEGATIVE (NEGATIVE); COLOR,URINE YELLOW; GLUCOSE, URINE NEGATIVE (NEGATIVE); KETONES,URINE NEGATIVE (NEGATIVE); LEUKOCYTE ESTERASE,URINE NEGATIVE (NEGATIVE); NITRITE,URINE NEGATIVE (NEGATIVE); PROTEIN,URINE NEGATIVE (NEGATIVE); URINE SPECIFIC GRAVITY 1.015; UROBILINOGEN,URINE NEGATIVE mg/dL (<2.0)
--- NOTE | 2018-03-25 05:36 | RADIOLOGY REPORT (SQ) ---
EXAM DESCRIPTION: X-ray abdomen 1 view CLINICAL DATA: 52-year-old female with left-sided kidney stone. TECHNICAL DATA: A single AP supine x-ray of the abdomen was performed. Comparison: CT abdomen and pelvis performed on 03/23/2018.. FINDINGS: The bowel gas pattern is nonspecific and nonobstructive. There is contrast in the renal collecting systems related to the patient's recent contrast-enhanced CT scan. There is no evidence of hydronephrosis or definite hydroureter. The bladder is partially distended with contrast and is grossly unremarkable. No pathologic abdominal or pelvic calcifications are identified. There are surgical clips in the left hemipelvis. There are remote postsurgical changes of the lower lumbar spine consistent with posterior decompression and fusion of L3-L5. No abnormal air collections are identified. No focal soft tissue abnormalities are seen. No acute osseous abnormalities are identified. There is mild scoliosis of the lumbar spine convex to the left. IMPRESSION: 1. Nonspecific and nonobstructive bowel gas pattern. 2. No definite urinary tract calculus identified. 3. Postsurgical changes in the left hemipelvis and lower lumbar spine.
[2018-03-25] MEDS ORDERED: MAG HYDROX/AL HYDROX/SIMETH SUSP 30 ML UDCUP PO PRN (06:10)
[2018-03-25] MEDS ORDERED: IPRATROPIUM/ALBUTEROL 0.5-2.5 MG/3 ML AMPUL NEB PRN (06:10)
[2018-03-25] MEDS ORDERED: ACETAMINOPHEN 325 MG TABLET PO PRN (06:10)
[2018-03-25] MEDS ORDERED: VANCOMYCIN HCL 0 MG in DEXTROSE 5%-WATER 250 ML IV NR (06:15)
[2018-03-25 06:47] LABS: URINE AMPHETAMINES SCREEN NEGATIVE; URINE BARBITURATES SCREEN NEGATIVE; URINE BENZODIAZEPINES SCREEN NEGATIVE; URINE COCAINE SCREEN NEGATIVE; URINE MARIJUANA (THC) SCREEN NEGATIVE; URINE METHADONE SCREEN NEGATIVE; URINE PHENCYCLIDINE SCREEN NEGATIVE
--- NOTE | 2018-03-25 06:59 | PDOC H&P ---
History of Present Illness Admission Date/PCP: 03/25/18 06:21 GORDON JAMESON Patient complains of: Neck, scalp erythema and pain History of Present Illness: JOSE ERWIN is a 52 year old female with a past medical history of opiate dependent chronic pain, migraine headache and nephrolithiasis. She presents with 2 separate complaints. Seen yesterday for left-sided flank pain with hematuria and found to have a 3 mm stone she was discharged with instructions to hydrate however the symptoms have not completely resolved. She she was also evaluated for a swelling on her left posterior scalp which has greatly increased with erythema and pain prompting her reevaluation in the emergency room. She is found to have significant erythema and pain into the neck with a CT showing edema suggestive with cellulitis without abscess. Urinalysis is persistent with blood. She started on IV fluid empiric antibiotics and referred to the hospitalist for admission. She does admit multiple previous episodes of abscess requiring I&D but denies MRSA. Past Medical History Cardiac Medical History: Denies: Myocardial Infarction, Hypertension Pulmonary Medical History: Denies: Asthma Neurological Medical History: Reports: Migraine Denies: Seizures GI Medical History: Denies: Hepatitis, Hiatal Hernia Hematology: Denies: Anemia, Sickle Cell Disease Past Surgical History Past Surgical History: Reports: Appendectomy, Section, Hysterectomy, Orthopedic Surgery Denies: Amputation, Mastectomy, Pacemaker Social History Information Source: Patient Smoking Status: Current Every Day Smoker Frequency of Alcohol Use: None Drugs: None - Advance Directive Resuscitation Status: Full Code Family History Family History: None, Hypertension, Other - Recurrent superficial skin infections in mother and children Parental Family History Reviewed: Yes Children Family History Reviewed: Yes Sibling(s) Family History Reviewed.: Yes Medication/Allergy Home Medications: Sertraline HCl [Zoloft] 100 mg PO DAILY 07/05/12 Tizanidine HCl [Zanaflex 4 Mg Tablet] 4 mg PO TID 07/05/12 Etodolac [Lodine] 200 mg PO TID 08/27/17 Gabapentin Enacarbil [Horizant] 300 mg PO BID 08/27/17 Ondansetron [Zofran Odt] 4 mg PO DAILY 08/27/17 Quetiapine Fumarate [Seroquel] 100 mg PO DAILY 08/27/17 Tapentadol HCl [Nucynta] 75 mg PO TID 08/27/17 Ondansetron [Zofran Odt 4 mg Tablet] 1 - 2 tab PO Q4H PRN #10 tab.rapdis Tamsulosin HCl [Flomax 0.4 mg Cap.sr] 0.4 mg PO DAILY #7 cap.sr.24h 03/23/18 Allergies/Adverse Reactions: adhesive tape Allergy (Verified 03/23/18 12:17) Blisters Review of Systems Constitutional: ABSENT: chills, fever(s), headache(s), weight gain, weight loss Eyes: ABSENT: visual disturbances Ears: ABSENT: hearing changes Cardiovascular: ABSENT: chest pain, dyspnea on exertion, edema, orthropnea, palpitations Respiratory: ABSENT: cough, hemoptysis Gastrointestinal: ABSENT: abdominal pain, constipation, diarrhea, hematemesis, hematochezia, nausea, vomiting Genitourinary: ABSENT: dysuria, hematuria Musculoskeletal: ABSENT: joint swelling Integumentary: ABSENT: rash, wounds Neurological: ABSENT: abnormal gait, abnormal speech, confusion, dizziness, focal weakness, syncope Psychiatric: ABSENT: anxiety, depression, homidical ideation, suicidal ideation Endocrine: ABSENT: cold intolerance, heat intolerance, polydipsia, polyuria Hematologic/Lymphatic: ABSENT: easy bleeding, easy bruising Physical Exam Vital Signs: Temp Pulse Resp BP Pulse Ox 99.0 F 132 H 18 102/64 96 03/24/18 22:07 03/24/18 22:07 03/24/18 22:07 03/24/18 22:07 03/24/18 22:07 General appearance: PRESENT: cooperative, mild distress. ABSENT: disheveled Head exam: PRESENT: atraumatic, normocephalic, other - Mild erythema with induration, tenderness, to the left posterior scalp extending to the shoulder posteriorly and the anterior chest. No evidence of abscess or fluctuance Eye exam: PRESENT: conjunctiva pink, EOMI, PERRLA. ABSENT: scleral icterus Ear exam: PRESENT: normal external ear exam Mouth exam: PRESENT: moist, tongue midline Neck exam: ABSENT: carotid bruit, JVD, lymphadenopathy, thyromegaly Respiratory exam: PRESENT: clear to auscultation yany. ABSENT: rales, rhonchi, wheezes Cardiovascular exam: PRESENT: RRR, systolic murmur - Known ejection murmur. ABSENT: diastolic murmur, rubs Pulses: PRESENT: normal dorsalis pedis pul Vascular exam: PRESENT: normal capillary refill GI/Abdominal exam: PRESENT: normal bowel sounds, soft. ABSENT: distended, guarding, mass, organolmegaly, rebound, tenderness Rectal exam: PRESENT: deferred Extremities exam: PRESENT: full ROM. ABSENT: calf tenderness, clubbing, pedal edema Neurological exam: PRESENT: alert, awake, oriented to person, oriented to place , oriented to time, oriented to situation, CN II-XII grossly intact. ABSENT: motor sensory deficit Psychiatric exam: PRESENT: appropriate affect, normal mood. ABSENT: homicidal ideation, suicidal ideation Skin exam: PRESENT: dry, erythema, intact, warm. ABSENT: cyanosis, jaundice, normal color, pallor, skin tears Results Impressions: Soft Tissue Neck CT 03/25/18 02:27 IMPRESSION: 1. Inflammatory change in the subcutaneous soft tissues of the posterolateral left neck. These findings are suggestive of cellulitis. No well-circumscribed fluid collection to suggest abscess formation. TECHNICAL DOCUMENTATION: Quality ID # 436: Final reports with documentation of one or more dose reduction techniques (e.g., Automated exposure control, adjustment of the mA and/or kV according to patient size, use of iterative reconstruction technique) 2010 [employer]- All Rights Reserved KUB X-Ray 03/25/18 04:33 IMPRESSION: 1. Nonspecific and nonobstructive bowel gas pattern. 2. No definite urinary tract calculus identified. 3. Postsurgical changes in the left hemipelvis and lower lumbar spine. Assessment & Plan - Diagnosis (1) Cellulitis Qualifiers: Site of cellulitis: neck Qualified Code(s): L03.221 - Cellulitis of neck Is this a current diagnosis for this admission?: Yes Plan: Scalp cellulitis extending to the neck, CT soft tissue neck negative for fluid collection or abscess. Empiric antibiotics, symptomatic management, follow-up CBC and blood culture (2) Renal colic on left side Is this a current diagnosis for this admission?: Yes Plan: IV fluid challenge, empiric antibiotics, follow-up CBC and urine culture. (3) Chronic pain Is this a current diagnosis for this admission?: Yes Plan: Continue, outpatient medication regiment of Nucynta 100 every 12 and OxyContin 15 every 12 verified by current medication bottles of bedside - Time Time Spent: 30 to 50 Minutes - Inpatient Certification Medical Necessity: Need Close Monitoring Due to Risk of Patient Decompensation
[2018-03-25] MEDS: NORMAL SALINE 1000 ML 1,000 ML IV SCH ×2 (07:11→12:24)
[2018-03-25] MEDS: IPRATROPIUM/ALBUTEROL 0.5-2.5 MG/3 ML AMPUL NEB SCH ×2 (08:35→20:47)
[2018-03-25] MEDS: MORPHINE SULFATE 10 MG/ML INJ IV PRN ×5 (09:18→23:21)
[2018-03-25] MEDS: SERTRALINE HCL 50 MG TABLET PO SCH (09:19)
[2018-03-25] MEDS: DOCUSATE SODIUM 100 MG CAPSULE PO SCH ×2 (09:19→17:43)
[2018-03-25] MEDS ORDERED: TIZANIDINE HCL 4 MG TABLET PO SCH (10:00)
[2018-03-25] MEDS ORDERED: QUETIAPINE FUMARATE 100 MG TABLET PO SCH (10:00)
[2018-03-25] MEDS ORDERED: (PENDING PHARMACY ID) (Gabapentin Enacarbil [Horizant] 300 MG) PO SCH (10:00)
[2018-03-25] MEDS: KETOROLAC TROMETHAMINE INJ/PF 30 MG/1 ML SDV IV PRN ×2 (11:11→18:56)
[2018-03-25] MEDS: TAMSULOSIN HCL 0.4 MG CAP.SR.24H PO SCH (11:12)
[2018-03-25] MEDS ORDERED: ACYCLOVIR SODIUM INJ/PF 500 MG/10 ML SDV IV SCH (14:00)
--- NOTE | 2018-03-25 14:40 | PDOC PROGRESS REPORT ---
Subjective Progress Note for:: 03/25/18 Subjective:: JOSE ERWIN is a 52 year old female with a past medical history of opiate dependent chronic pain, migraine headache and nephrolithiasis. She presents with 2 separate complaints. Seen yesterday for left-sided flank pain with hematuria and found to have a 3 mm stone she was discharged with instructions to hydrate however the symptoms have not completely resolved. She she was also evaluated for a swelling on her left posterior scalp which has greatly increased with erythema and pain prompting her reevaluation in the emergency room. She is found to have significant erythema and pain into the neck with a CT showing edema suggestive with cellulitis without abscess. Urinalysis is persistent with blood. She started on IV fluid empiric antibiotics and referred to the hospitalist for admission. She does admit multiple previous episodes of abscess requiring I&D but denies MRSA Patient's notes that the area of tenderness and induration has extended down her neck to the border of the posterior sternocleido mastoid muscle. She states that she noticed some small blisterlike lesions on her scalp 3 days ago had scratched them and did not think much of it. The pain began to intensify yesterday and now is extending down her posterior scalp and neck on the left side. She had an additional formation of 2 other of these small lesions she could not see them but they do appear to be crusted over at this point. Reason For Visit: SCALP CELLULITIS NEPHROLITHIASIS, CHRONIC PAIN Physical Exam Vital Signs: Temp Pulse Resp BP Pulse Ox 98.2 F 116 H 18 110/63 94 03/25/18 11:18 03/25/18 11:18 03/25/18 11:18 03/25/18 11:18 03/25/18 11:18 Intake & Output 03/24/18 03/25/18 03/26/18 06:59 06:59 06:59 Intake Total 1400 Balance 1400 Weight 67.9 kg General appearance: PRESENT: mild distress Head exam: PRESENT: atraumatic, normocephalic, other - Induration of the scalp with small crusted areas which could represent vesicular lesions. Induration and exquisite tenderness posterior left neck no vesicular eruption no christine abscess Neck exam: PRESENT: tenderness - To palpation on the posterior neck along with sternal Cardiolite L mastoid muscle and to the scalp. ABSENT: carotid bruit, JVD, lymphadenopathy, thyromegaly Respiratory exam: PRESENT: clear to auscultation yany. ABSENT: rales, rhonchi, wheezes Cardiovascular exam: PRESENT: RRR. ABSENT: diastolic murmur, rubs, systolic murmur GI/Abdominal exam: PRESENT: normal bowel sounds, soft. ABSENT: distended, guarding, mass, organolmegaly, rebound, tenderness Extremities exam: PRESENT: full ROM. ABSENT: calf tenderness, clubbing, pedal edema Neurological exam: PRESENT: alert, awake, oriented to person, oriented to place , oriented to time, oriented to situation, CN II-XII grossly intact. ABSENT: motor sensory deficit Results Impressions: Soft Tissue Neck CT 03/25/18 02:27 IMPRESSION: 1. Inflammatory change in the subcutaneous soft tissues of the posterolateral left neck. These findings are suggestive of cellulitis. No well-circumscribed fluid collection to suggest abscess formation. TECHNICAL DOCUMENTATION: Quality ID # 436: Final reports with documentation of one or more dose reduction techniques (e.g., Automated exposure control, adjustment of the mA and/or kV according to patient size, use of iterative reconstruction technique) 2010 [employer]- All Rights Reserved KUB X-Ray 03/25/18 04:33 IMPRESSION: 1. Nonspecific and nonobstructive bowel gas pattern. 2. No definite urinary tract calculus identified. 3. Postsurgical changes in the left hemipelvis and lower lumbar spine. Assessment & Plan - Diagnosis (1) Zoster Qualifiers: Herpes zoster ocular complication detail: unspecified herpes zoster eye disease Is this a current diagnosis for this admission?: Yes Plan: Vesicular lesions on the scalp and distribution consistent with the occipital nerve appears patient has zoster of the occipital nerve and not a cellulitis. The area has extended in the past 24 hours we will give IV acyclovir 700 mg every 8 hours. We will continue IV antibiotics at this point monitor for response. Begin Neurontin for herpetic neuralgia (2) Renal colic on left side Is this a current diagnosis for this admission?: Yes Plan: Diagnosed 03/23/[address] Patient has a left distal 3 mm calculus. Pain KUB. (3) Ureteral stone with hydronephrosis Is this a current diagnosis for this admission?: Yes Plan: Diagnosed 03/23/2018 by CAT scan. Will send patient down for KUB to see if stone can be visualized. Strain urine to capture stone if she passes it. If still having left flank pain tomorrow will repeat CAT scan renal stone protocol if hydronephrosis getting worse then patient will need to be transferred as there is no urology here - Time Time Spent with patient: 25-34 minutes Anticipated discharge: Home
[2018-03-25] MEDS: HEPARIN SOD (PORCINE) 5,000 UNIT/ML 1 ML SYRINGE SUBCUT SCH ×2 (14:54→21:28)
[2018-03-25] MEDS: TIZANIDINE HCL 4 MG TABLET PO SCH ×2 (14:58→21:27)
--- NOTE | 2018-03-25 15:21 | RADIOLOGY REPORT (SQ) ---
EXAM DESCRIPTION: KUB/ABDOMEN (SINGLE VIEW) COMPLETED DATE/TIME: 03/25/2018 3:08 pm REASON FOR STUDY: Follow-up left ureteric stone COMPARISON: 03/25/2018 NUMBER OF VIEWS: One view. TECHNIQUE: Supine radiographic image of the abdomen acquired. LIMITATIONS: None. FINDINGS: BOWEL GAS PATTERN: Normal bowel gas pattern. No dilated loops. Colonic fecal stasis, main ly on the right. CALCIFICATIONS: No suspicious calcifications. SOFT TISSUES: No gross mass or suggestion of organomegaly. HARDWARE:Hardware posterior fusion L3-L5. Mild levoconvex scoliosis. BONES: No acute fracture. No worrisome bone lesions. OTHER: Opacification of the urinary bladder likely related to contrast CT examinations performed ear lier. Incidentally, gallstone is suggested. IMPRESSION: 1. No significant interval changes since the prior examination performed earlier on the same day. 2. NO RADIOGRAPHIC EVIDENCE FOR ACUTE ABDOMINAL DISEASE. 3. Incidentally, gallstone. TECHNICAL DOCUMENTATION: JOB ID: [id number] [id number]- All Rights Reserved Reading location - IP/workstation name: [email or web address]
[2018-03-25] MEDS: ACYCLOVIR SODIUM 700 MG in NORMAL SALINE 100 ML IV SCH (17:43)
[2018-03-25] MEDS: GABAPENTIN 100 MG CAPSULE PO SCH (21:27)
[2018-03-25] MEDS: VANCOMYCIN HCL 1,250 MG in DEXTROSE 5%-WATER 250 ML IV SCH (21:36)
[2018-03-25] MEDS: NORMAL SALINE 1000 ML 1,000 ML IV PRN (21:46)
[2018-03-25] MEDS ORDERED: CEFTRIAXONE 1 GM/D5W RTU 1 GM/50 ML RTUPB IV SCH (22:00)
[2018-03-25] MEDS: CEFTRIAXONE SODIUM 1,000 MG in DEXTROSE 5%-WATER 50 ML IV SCH (23:27)
[2018-03-25] MEDS: QUETIAPINE FUMARATE 100 MG TABLET PO SCH (23:29)
[2018-03-26] MEDS: MORPHINE SULFATE 10 MG/ML INJ IV PRN ×5 (02:24→21:32)
[2018-03-26] MEDS: ACYCLOVIR SODIUM 700 MG in NORMAL SALINE 100 ML IV SCH ×3 (02:25→18:16)
[2018-03-26] MEDS: KETOROLAC TROMETHAMINE INJ/PF 30 MG/1 ML SDV IV PRN ×3 (02:29→20:45)
[2018-03-26] MEDS ORDERED: HYDROMORPHONE HCL INJ/PF 2 MG/ML AMPULE INJ ONE (03:45)
[2018-03-26] MEDS: GABAPENTIN 100 MG CAPSULE PO SCH (05:17)
[2018-03-26] MEDS: TIZANIDINE HCL 4 MG TABLET PO SCH ×3 (05:18→21:34)
[2018-03-26] MEDS: HEPARIN SOD (PORCINE) 5,000 UNIT/ML 1 ML SYRINGE SUBCUT SCH ×3 (05:20→21:34)
[2018-03-26 06:08] LABS: ABSOLUTE EOSINOPHILS # (AUTO) 0.3 10^3/uL (0.0-0.6); ABSOLUTE LYMPHOCYTES (AUTO) 2.1 10^3/uL (0.5-4.7); ABSOLUTE MONOCYTES (AUTO) 0.6 10^3/uL (0.1-1.4); ABSOLUTE NEUT (AUTO) 9.2 10^3/uL (1.7-8.2); BASOPHILS % (AUTO) 0.3 % (0-2); EOSINOPHILS % (AUTO) 2.5 % (0-6); HEMATOCRIT 33.2 % (36.0-47.0); LYMPHOCYTES % (AUTO) 17.1 % (13-45); MEAN CORPUSCULAR HEMOGLOBIN 31.5 pg (27.0-33.4); MEAN CORPUSCULAR HGB CONC 33.4 g/dL (32.0-36.0); MEAN CORPUSCULAR VOLUME 94 fl (80-97); MONOCYTES % (AUTO) 4.6 % (3-13); PLATELET COUNT 187 10^3/uL (150-450); RED BLOOD COUNT 3.51 10^6/uL (3.72-5.28); RED CELL DISTRIBUTION WIDTH 13.8 % (11.5-14.0); SEGMENTED NEUTROPHILS % (AUTO) 75.5 % (42-78); TOTAL CELLS COUNTED % (AUTO) 100 %; WHITE BLOOD COUNT 12.2 10^3/uL (4.0-10.5)
[2018-03-26 06:10] LABS: HEMOGLOBIN 11.1 g/dL (12.0-15.5)
[2018-03-26 06:30] LABS: ANION GAP 6 (5-19); BLOOD UREA NITROGEN 9 mg/dL (7-20); CALCIUM 8.5 mg/dL (8.4-10.2); CARBON DIOXIDE 23 mmol/L (22-30); CHLORIDE 112 mmol/L (98-107); GLUCOSE 117 mg/dL (75-110); POTASSIUM 3.7 mmol/L (3.6-5.0); SODIUM 141.2 mmol/L (137-145)
[2018-03-26] MEDS: IPRATROPIUM/ALBUTEROL 0.5-2.5 MG/3 ML AMPUL NEB SCH ×2 (09:09→20:50)
[2018-03-26] MEDS ORDERED: (PENDING PHARMACY ID) (Topiramate [Topamax] 200 MG) PO SCH (10:00)
[2018-03-26] MEDS: DOCUSATE SODIUM 100 MG CAPSULE PO SCH ×2 (10:00→18:17)
[2018-03-26] MEDS: SERTRALINE HCL 50 MG TABLET PO SCH (10:01)
[2018-03-26] MEDS: TAMSULOSIN HCL 0.4 MG CAP.SR.24H PO SCH (10:01)
--- NOTE | 2018-03-26 10:12 | PDOC PROGRESS REPORT ---
Subjective Progress Note for:: 03/26/18 Subjective:: JOSE ERWIN is a 52 year old female with a past medical history of opiate dependent chronic pain, migraine headache and nephrolithiasis. She presents with 2 separate complaints. Seen yesterday for left-sided flank pain with hematuria and found to have a 3 mm stone she was discharged with instructions to hydrate however the symptoms have not completely resolved. She she was also evaluated for a swelling on her left posterior scalp which has greatly increased with erythema and pain prompting her reevaluation in the emergency room. She is found to have significant erythema and pain into the neck with a CT showing edema suggestive with cellulitis without abscess. Urinalysis is persistent with blood. She started on IV fluid empiric antibiotics and referred to the hospitalist for admission. She does admit multiple previous episodes of abscess requiring I&D but denies MRSA Patient's notes that the area of tenderness and induration has extended down her neck to the border of the posterior sternocleido mastoid muscle. She states that she noticed some small blisterlike lesions on her scalp 3 days ago had scratched them and did not think much of it. The pain began to intensify yesterday and now is extending down her posterior scalp and neck on the left side. She had an additional formation of 2 other of these small lesions she could not see them but they do appear to be crusted over at this point. KUB could not identify stone. Patient has been straining urine and has not passed a stone. Pain still significant on left neck and scalp currently on acyclovir as well as vancomycin and Rocephin. White count decreased to 12,000. No new vesicular lesions identified Reason For Visit: SCALP CELLULITIS NEPHROLITHIASIS, CHRONIC PAIN Physical Exam Vital Signs: Temp Pulse Resp BP Pulse Ox 98.3 F 80 18 103/63 98 03/26/18 08:42 03/26/18 08:44 03/26/18 08:44 03/26/18 08:44 03/26/18 09:09 Intake & Output 03/25/18 03/26/18 03/27/18 06:59 06:59 06:59 Intake Total 2018 Output Total 750 Balance 1268 Weight 67.7 kg General appearance: PRESENT: no acute distress, well-developed, well-nourished Head exam: PRESENT: atraumatic, normocephalic, other - Crusted lesions on posterior left scalp induration and tenderness in the occipital nerve distribution Neck exam: PRESENT: other - Left posterior tenderness of the skin. ABSENT: carotid bruit, JVD, lymphadenopathy, thyromegaly Respiratory exam: PRESENT: clear to auscultation yany. ABSENT: rales, rhonchi, wheezes Cardiovascular exam: PRESENT: RRR. ABSENT: diastolic murmur, rubs, systolic murmur GI/Abdominal exam: PRESENT: normal bowel sounds, soft, tenderness - Minimal left flank on percussion. ABSENT: distended, guarding, mass, organolmegaly, rebound Extremities exam: PRESENT: full ROM. ABSENT: calf tenderness, clubbing, pedal edema Neurological exam: PRESENT: alert, awake, oriented to person, oriented to place , oriented to time, oriented to situation, CN II-XII grossly intact. ABSENT: motor sensory deficit Results Laboratory Results: 03/26/18 05:50 03/26/18 05:51 03/26/18 03/26/18 05:50 05:51 WBC 12.2 H RBC 3.51 L Hgb 11.1 L D Hct 33.2 L MCV 94 MCH 31.5 MCHC 33.4 RDW 13.8 Plt Count 187 Seg Neutrophils % 75.5 Lymphocytes % 17.1 Monocytes % 4.6 Eosinophils % 2.5 Basophils % 0.3 Absolute Neutrophils 9.2 H Absolute Lymphocytes 2.1 Absolute Monocytes 0.6 Absolute Eosinophils 0.3 Absolute Basophils 0.0 Sodium 141.2 Potassium 3.7 Chloride 112 H Carbon Dioxide 23 Anion Gap 6 BUN 9 Creatinine 0.75 Est GFR ( Amer) > 60 Est GFR (Non-Af Amer) > 60 Glucose 117 H Calcium 8.5 Impressions: Soft Tissue Neck CT 03/25/18 02:27 IMPRESSION: 1. Inflammatory change in the subcutaneous soft tissues of the posterolateral left neck. These findings are suggestive of cellulitis. No well-circumscribed fluid collection to suggest abscess formation. TECHNICAL DOCUMENTATION: Quality ID # 436: Final reports with documentation of one or more dose reduction techniques (e.g., Automated exposure control, adjustment of the mA and/or kV according to patient size, use of iterative reconstruction technique) 2010 [employer]- All Rights Reserved KUB X-Ray 03/25/18 04:33 IMPRESSION: 1. Nonspecific and nonobstructive bowel gas pattern. 2. No definite urinary tract calculus identified. 3. Postsurgical changes in the left hemipelvis and lower lumbar spine. Assessment & Plan - Diagnosis (1) Zoster Qualifiers: Herpes zoster ocular complication detail: unspecified herpes zoster eye disease Is this a current diagnosis for this admission?: Yes Plan: Patient currently on acyclovir vancomycin and Rocephin. The area of intense pain is consistent with occipital nerve distribution. No new vesicular lesions identified intensity of pain has not decreased however. White count 12,000 we will repeat CBC in morning. Patient had been on Neurontin in the past will increase Neurontin to 300 mg twice daily (2) Renal colic on left side Is this a current diagnosis for this admission?: Yes Plan: Urine culture negative times 24 hours. Will reassess patient's hydronephrosis. (3) Ureteral stone with hydronephrosis Is this a current diagnosis for this admission?: Yes Plan: She does not pass stone she is straining her urine. We will obtain renal ultrasound. If patient's hydronephrosis has worsened and stone is obstructing will need to be transferred to hospital with urology capabilities. (4) Chronic pain Is this a current diagnosis for this admission?: Yes Plan: Reviewed patient's med rec will hold the Nucynta will continue the Seroquel patient's Zanaflex has been decreased due to interaction with acyclovir. Continue to monitor pain control and adjust as indicated. - Time Time Spent with patient: 25-34 minutes Anticipated discharge: Home
[2018-03-26] MEDS: HYDROCODONE/ACETAMINOPHEN 5-325 MG TABLET PO PRN ×3 (10:18→23:12)
[2018-03-26] MEDS: TOPIRAMATE 100 MG TABLET PO SCH (11:29)
[2018-03-26] MEDS ORDERED: GABAPENTIN 100 MG CAPSULE PO SCH (18:00)
[2018-03-26] MEDS: GABAPENTIN 300 MG CAPSULE PO SCH (18:16)
[2018-03-26] MEDS: NORMAL SALINE 1000 ML 1,000 ML IV PRN (20:49)
[2018-03-26] MEDS: CEFTRIAXONE SODIUM 1,000 MG in DEXTROSE 5%-WATER 50 ML IV SCH (21:33)
[2018-03-26] MEDS: QUETIAPINE FUMARATE 100 MG TABLET PO SCH (21:33)
[2018-03-26] MEDS ORDERED: QUETIAPINE FUMARATE 100 MG TABLET PO SCH (22:00)
[2018-03-26] MEDS: VANCOMYCIN HCL 1,250 MG in DEXTROSE 5%-WATER 250 ML IV SCH (23:12)
--- NOTE | 2018-03-27 00:03 | RADIOLOGY REPORT (SQ) ---
EXAM DESCRIPTION: US RETROPERITONEUM COMPLETED DATE/TME: 03/26/2018 00:00 CLINICAL HISTORY: 52 years, Female, Obstructing stone on the left assess hydronephrosi COMPARISON: None. TECHNIQUE: Grayscale and color Doppler evaluation of the bilateral kidneys was done along with evaluation of the urinary bladder LIMITATIONS: None. FINDINGS: There is no hydronephrosis or nephrolithiasis on either side. The right kidney measures 11 cm in length and the left kidney measures 12.4 cm in length. The bilateral ureteral jets were not visualized as the patient had recently voided IMPRESSION: Unremarkable bilateral renal ultrasound 2010 [employer]- All Rights Reserved
[2018-03-27] MEDS: MORPHINE SULFATE 10 MG/ML INJ IV PRN ×5 (00:55→18:38)
[2018-03-27] MEDS: ACYCLOVIR SODIUM 700 MG in NORMAL SALINE 100 ML IV SCH ×2 (02:09→10:18)
[2018-03-27] MEDS: HYDROCODONE/ACETAMINOPHEN 5-325 MG TABLET PO PRN ×2 (03:58→20:48)
[2018-03-27] MEDS: KETOROLAC TROMETHAMINE INJ/PF 30 MG/1 ML SDV IV PRN ×3 (03:59→20:46)
[2018-03-27] MEDS: TIZANIDINE HCL 4 MG TABLET PO SCH ×3 (05:59→21:58)
[2018-03-27] MEDS: GABAPENTIN 300 MG CAPSULE PO SCH ×2 (05:59→17:33)
[2018-03-27] MEDS: HEPARIN SOD (PORCINE) 5,000 UNIT/ML 1 ML SYRINGE SUBCUT SCH ×3 (06:00→22:03)
[2018-03-27 06:46] LABS: ABSOLUTE EOSINOPHILS # (AUTO) 0.4 10^3/uL (0.0-0.6); ABSOLUTE LYMPHOCYTES (AUTO) 2.2 10^3/uL (0.5-4.7); ABSOLUTE MONOCYTES (AUTO) 0.6 10^3/uL (0.1-1.4); ABSOLUTE NEUT (AUTO) 6.2 10^3/uL (1.7-8.2); BASOPHILS % (AUTO) 0.2 % (0-2); EOSINOPHILS % (AUTO) 3.8 % (0-6); HEMATOCRIT 29.6 % (36.0-47.0); LYMPHOCYTES % (AUTO) 23.3 % (13-45); MEAN CORPUSCULAR HGB CONC 33.9 g/dL (32.0-36.0); MEAN CORPUSCULAR VOLUME 94 fl (80-97); MONOCYTES % (AUTO) 6.1 % (3-13); PLATELET COUNT 185 10^3/uL (150-450); RED BLOOD COUNT 3.13 10^6/uL (3.72-5.28); RED CELL DISTRIBUTION WIDTH 13.7 % (11.5-14.0); SEGMENTED NEUTROPHILS % (AUTO) 66.6 % (42-78); TOTAL CELLS COUNTED % (AUTO) 100 %; WHITE BLOOD COUNT 9.3 10^3/uL (4.0-10.5)
[2018-03-27 07:04] LABS: ANION GAP 6 (5-19); BLOOD UREA NITROGEN 9 mg/dL (7-20); CALCIUM 8.5 mg/dL (8.4-10.2); CARBON DIOXIDE 22 mmol/L (22-30); CHLORIDE 114 mmol/L (98-107); GLUCOSE 103 mg/dL (75-110); POTASSIUM 3.8 mmol/L (3.6-5.0); SODIUM 141.8 mmol/L (137-145)
[2018-03-27] MEDS: IPRATROPIUM/ALBUTEROL 0.5-2.5 MG/3 ML AMPUL NEB SCH ×2 (08:46→19:49)
[2018-03-27] MEDS: TAMSULOSIN HCL 0.4 MG CAP.SR.24H PO SCH (10:17)
[2018-03-27] MEDS: TOPIRAMATE 100 MG TABLET PO SCH (10:17)
[2018-03-27] MEDS: DOCUSATE SODIUM 100 MG CAPSULE PO SCH ×2 (10:17→17:37)
[2018-03-27] MEDS: SERTRALINE HCL 50 MG TABLET PO SCH (10:18)
--- NOTE | 2018-03-27 13:48 | PDOC PROGRESS REPORT ---
Subjective Progress Note for:: 03/27/18 Subjective:: No adverse events overnight. No new complaints. Vital signs been stable. Patient was resting comfortably with her eyes closed when I came in the room. She says she has not noticed any new vesicles on her scalp. Reason For Visit: SCALP CELLULITIS NEPHROLITHIASIS, CHRONIC PAIN Physical Exam Vital Signs: Temp Pulse Resp BP Pulse Ox 98.2 F 100 20 103/50 L 93 03/27/18 12:01 03/27/18 12:01 03/27/18 12:01 03/27/18 12:01 03/27/18 12:01 Intake & Output 03/26/18 03/27/18 03/28/18 06:59 06:59 06:59 Intake Total 2318 2522 580 Output Total 750 250 Balance 1568 2272 580 Weight 67.7 kg General appearance: PRESENT: no acute distress, well-developed, well-nourished Head exam: PRESENT: atraumatic, normocephalic, other -previously described crusted lesions on posterior left scalp not able to be visualized today, there is no oozing or induration, some mild tenderness to palpation Neck exam: ABSENT: carotid bruit, JVD, lymphadenopathy, thyromegaly Respiratory exam: PRESENT: clear to auscultation yany. ABSENT: rales, rhonchi, wheezes Cardiovascular exam: PRESENT: RRR. ABSENT: diastolic murmur, rubs, systolic murmur GI/Abdominal exam: PRESENT: normal bowel sounds, soft, tenderness - Minimal left flank on percussion. ABSENT: distended, guarding, mass, organolmegaly, rebound Extremities exam: PRESENT: full ROM. ABSENT: calf tenderness, clubbing, pedal edema Results Laboratory Results: 03/27/18 05:58 03/27/18 05:58 03/27/18 03/27/18 05:58 05:58 WBC 9.3 RBC 3.13 L Hgb 10.0 L Hct 29.6 L MCV 94 MCH 32.0 MCHC 33.9 RDW 13.7 Plt Count 185 Seg Neutrophils % 66.6 Lymphocytes % 23.3 Monocytes % 6.1 Eosinophils % 3.8 Basophils % 0.2 Absolute Neutrophils 6.2 Absolute Lymphocytes 2.2 Absolute Monocytes 0.6 Absolute Eosinophils 0.4 Absolute Basophils 0.0 Sodium 141.8 Potassium 3.8 Chloride 114 H Carbon Dioxide 22 Anion Gap 6 BUN 9 Creatinine 0.68 Est GFR ( Amer) > 60 Est GFR (Non-Af Amer) > 60 Glucose 103 Calcium 8.5 03/25/18 18:52 Clean Catch Midstream Urine Culture - Final NO GROWTH 2 DAYS Impressions: Soft Tissue Neck CT 03/25/18 02:27 IMPRESSION: 1. Inflammatory change in the subcutaneous soft tissues of the posterolateral left neck. These findings are suggestive of cellulitis. No well-circumscribed fluid collection to suggest abscess formation. TECHNICAL DOCUMENTATION: Quality ID # 436: Final reports with documentation of one or more dose reduction techniques (e.g., Automated exposure control, adjustment of the mA and/or kV according to patient size, use of iterative reconstruction technique) 2010 [employer]- All Rights Reserved KUB X-Ray 03/25/18 04:33 IMPRESSION: 1. Nonspecific and nonobstructive bowel gas pattern. 2. No definite urinary tract calculus identified. 3. Postsurgical changes in the left hemipelvis and lower lumbar spine. Renal Ultrasound 03/26/18 00:00 IMPRESSION: Unremarkable bilateral renal ultrasound 2010 [employer]- All Rights Reserved Assessment & Plan - Diagnosis (1) Zoster Qualifiers: Herpes zoster ocular complication detail: unspecified herpes zoster eye disease Is this a current diagnosis for this admission?: Yes Plan: Switching to oral Valtrex. If does well on this will likely discharge home tomorrow. No signs of cellulitis so I discontinued antibiotics. (2) Ureteral stone with hydronephrosis Is this a current diagnosis for this admission?: Yes Plan: Resolved. Renal ultrasound was negative. - Time Time Spent with patient: 25-34 minutes Anticipated discharge: Home Within: within 24 hours
[2018-03-27] MEDS: VALACYCLOVIR HCL 500 MG TABLET PO SCH ×2 (14:56→22:02)
[2018-03-27] MEDS: QUETIAPINE FUMARATE 100 MG TABLET PO SCH (21:57)
[2018-03-27] MEDS: NORMAL SALINE 1000 ML 1,000 ML IV PRN (22:04)
[2018-03-28] MEDS: MORPHINE SULFATE 10 MG/ML INJ IV PRN (00:51)
[2018-03-28] MEDS: KETOROLAC TROMETHAMINE INJ/PF 30 MG/1 ML SDV IV PRN (04:20)
[2018-03-28] MEDS: HYDROCODONE/ACETAMINOPHEN 5-325 MG TABLET PO PRN ×2 (04:22→09:20)
[2018-03-28] MEDS: HEPARIN SOD (PORCINE) 5,000 UNIT/ML 1 ML SYRINGE SUBCUT SCH (05:30)
[2018-03-28] MEDS: VALACYCLOVIR HCL 500 MG TABLET PO SCH (05:36)
[2018-03-28] MEDS: GABAPENTIN 300 MG CAPSULE PO SCH (05:36)
[2018-03-28] MEDS: TIZANIDINE HCL 4 MG TABLET PO SCH (05:37)
[2018-03-28] MEDS: IPRATROPIUM/ALBUTEROL 0.5-2.5 MG/3 ML AMPUL NEB SCH (08:03)
[2018-03-28] MEDS: TAMSULOSIN HCL 0.4 MG CAP.SR.24H PO SCH (09:21)
[2018-03-28] MEDS: SERTRALINE HCL 50 MG TABLET PO SCH (09:21)
[2018-03-28] MEDS: TOPIRAMATE 100 MG TABLET PO SCH (09:21)
[2018-03-28] MEDS: DOCUSATE SODIUM 100 MG CAPSULE PO SCH (09:21)
[2018-03-28 11:45] VITALS: BP 118/71
--- NOTE | 2018-03-28 13:35 | PDOC DISCHARGE SUMMARY ---
General - Admit/Disc Date/PCP Admission Date/Primary Care Provider: 03/25/18 06:21 SANTHOSH MCGOVERNGORDON Discharge Date: 03/28/18 - Discharge Diagnosis (1) Zoster Is this a current diagnosis for this admission?: Yes Summary: Responded to antivirals. She will continue a course of Valtrex at home. (2) Ureteral stone with hydronephrosis Is this a current diagnosis for this admission?: Yes Summary: Resolved. Stone seemingly passed on its own without problem. - Additional Information Resuscitation Status: Full Code Discharge Diet: As Tolerated, Regular Discharge Activity: Activity As Tolerated Prescriptions: Valacyclovir HCl [Valtrex 500 mg Tablet] 1,000 mg PO Q8 7 Days #42 tablet Home Medications: Cyclobenzaprine HCl [Flexeril 10 mg Tablet] 10 mg PO Q12HP PRN 03/25/18 Gabapentin [Gralise] 300 mg PO DAILY 03/25/18 Ondansetron [Zofran Odt] 8 mg SL BID 03/25/18 Oxycodone HCl 15 mg PO Q6 03/25/18 Quetiapine Fumarate [Seroquel 100 mg Tablet] 100 mg PO QHS 03/25/18 Sertraline HCl [Zoloft] 100 mg PO DAILY 03/25/18 Tapentadol HCl [Nucynta ER] 100 mg PO Q12 03/25/18 Tizanidine HCl [Zanaflex 4 mg Tablet] 4 mg PO Q8 03/25/18 Topiramate [Topamax] 200 mg PO DAILY 03/25/18 Valacyclovir HCl [Valtrex 500 mg Tablet] 1,000 mg PO Q8 7 Days #42 tablet History of Present Illness History of Present Illness: JOSE ERWIN is a 52 year old female with a past medical history of opiate dependent chronic pain, migraine headache and nephrolithiasis. She presents with 2 separate complaints. Seen yesterday for left-sided flank pain with hematuria and found to have a 3 mm stone she was discharged with instructions to hydrate however the symptoms have not completely resolved. She she was also evaluated for a swelling on her left posterior scalp which has greatly increased with erythema and pain prompting her reevaluation in the emergency room. She is found to have significant erythema and pain into the neck with a CT showing edema suggestive with cellulitis without abscess. Urinalysis is persistent with blood. She started on IV fluid empiric antibiotics and referred to the hospitalist for admission. She does admit multiple previous episodes of abscess requiring I&D but denies MRSA. Hospital Course Hospital Course: She was brought in for what initially looked like a scalp cellulitis but then developed vesicles and it became clear at that time that this was actually shingles. She was On antibiotics for a couple of days after antivirals were started but the antibiotics were discontinued, and she continued to improve on antivirals. She will complete a one-week course of Valtrex at home. Her labs and examination were reassuring and she was discharged in good condition. Physical Exam Vital Signs: Temp Pulse Resp BP Pulse Ox 98.2 F 79 18 118/71 96 03/28/18 11:47 03/28/18 11:47 03/28/18 11:47 03/28/18 11:47 03/28/18 11:47 Intake & Output 03/27/18 03/28/18 03/29/18 06:59 06:59 06:59 Intake Total 2522 4394 Output Total 250 2400 Balance 2272 1993 Weight 71 kg General appearance: PRESENT: no acute distress, well-developed, well-nourished Head exam: PRESENT: atraumatic, normocephalic, other -previously described crusted lesions on posterior left scalp not able to be visualized today, there is no oozing or induration, some mild tenderness to palpation Neck exam: ABSENT: carotid bruit, JVD, lymphadenopathy, thyromegaly Respiratory exam: PRESENT: clear to auscultation yany. ABSENT: rales, rhonchi, wheezes Cardiovascular exam: PRESENT: RRR. ABSENT: diastolic murmur, rubs, systolic murmur GI/Abdominal exam: PRESENT: normal bowel sounds, soft, tenderness - Minimal left flank on percussion. ABSENT: distended, guarding, mass, organolmegaly, rebound Extremities exam: PRESENT: full ROM. ABSENT: calf tenderness, clubbing, pedal edema Results Laboratory Results: 03/27/18 05:58 03/27/18 05:58 03/25/18 18:52 Clean Catch Midstream Urine Culture - Final NO GROWTH 2 DAYS Impressions: Soft Tissue Neck CT 03/25/18 02:27 IMPRESSION: 1. Inflammatory change in the subcutaneous soft tissues of the posterolateral left neck. These findings are suggestive of cellulitis. No well-circumscribed fluid collection to suggest abscess formation. TECHNICAL DOCUMENTATION: Quality ID # [id number]: Final reports with documentation of one or more dose reduction techniques (e.g., Automated exposure control, adjustment of the mA and/or kV according to patient size, use of iterative reconstruction technique) 2010 [email or web address]- All Rights Reserved KUB X-Ray 03/25/18 04:33 IMPRESSION: 1. Nonspecific and nonobstructive bowel gas pattern. 2. No definite urinary tract calculus identified. 3. Postsurgical changes in the left hemipelvis and lower lumbar spine. Renal Ultrasound 03/26/18 00:00 IMPRESSION: Unremarkable bilateral renal ultrasound 2010 [email or web address]- All Rights Reserved Qualifiers - * PATIENT BEING DISCHARGED WITH ANY OF THE FOLLOWING DIAGNOSIS: No
== END 2018-03-28 13:25 | disposition home or self-care (01) | DRG 603 ==
LOC: ER 21:58 → EH 03-25 06:21 → 2N 03-25 07:59
PROVIDERS: ADMIT Internal Medicine; ATTEND Internal Medicine
PROC: 3E0F73Z Introduction of Anti-inflammatory into Respiratory Tract, Via Natural or Artificial Opening (ICD-10-PCS; principal; 2018-03-25)
PROC: 3E02340 Introduction of Influenza Vaccine into Muscle, Percutaneous Approach (ICD-10-PCS; 2018-03-28)
DX: L03.811 Cellulitis of head [any part, except face] (principal); N13.2 Hydronephrosis with renal and ureteral calculous obstruction; B02.9 Zoster without complications; F11.229 Opioid dependence with intoxication, unspecified; G89.29 Other chronic pain; G43.909 Migraine, unspecified, not intractable, without status migrainosus; F17.210 Nicotine dependence, cigarettes, uncomplicated; L03.221 Cellulitis of neck; Z90.710 Acquired absence of both cervix and uterus; Z23 Encounter for immunization; Z79.899 Other long term (current) drug therapy; Z82.49 Family history of ischemic heart disease and other diseases of the circulatory system
CPT/HCPCS: 36415; 70491; 74018; 76770; 80048; 80307; 81001; 85025; 87040; 87086; 90471; 90686; 94640; 96361; 96365; 96366; 96367; 96375; 96376; 99285; G0008; J0133; J0696; J1170; J1644; J1885; J2270; J3370; J3490; J7030; J7060; J7620

== ENCOUNTER → 2018-06-20 | Outpatient (CLI) | payer OTHER ==
--- NOTE | 2018-06-20 12:19 | RADIOLOGY REPORT (SQ) ---
EXAM DESCRIPTION: CHEST PA/LATERAL COMPLETED DATE/TIME: 06/20/2018 12:07 pm REASON FOR STUDY: COUGH COMPARISON: None. EXAM PARAMETERS: NUMBER OF VIEWS: two views TECHNIQUE: Digital Frontal and Lateral radiographic views of the chest acquired. RADIATION DOSE: NA LIMITATIONS: none FINDINGS: LUNGS AND PLEURA: No opacities, masses or pneumothorax. No pleural effusion. MEDIASTINUM AND HILAR STRUCTURES: No masses or contour abnormalities. HEART AND VASCULAR STRUCTURES: Heart normal size. No evidence for failure. BONES: No acute findings. HARDWARE: None in the chest. OTHER: No other significant finding. IMPRESSION: NO SIGNIFICANT RADIOGRAPHIC FINDING IN THE CHEST. TECHNICAL DOCUMENTATION: JOB ID: [id number] [employer]- All Rights Reserved Reading location - IP/workstation name: [email or web address]
== END ==
LOC: OD 11:51
PROVIDERS: ATTEND Nurse Practitioner Family
DX: R05 Cough (principal)
CPT/HCPCS: 71046

== ENCOUNTER 2020-04-16 07:45 | Observation (INO) | payer OTHER ==
[2020-04-16 08:36] LABS: ABSOLUTE BASOPHILS # (AUTO) 0.1 10^3/uL (0.0-0.2); ABSOLUTE LYMPHOCYTES (AUTO) 1.2 10^3/uL (0.5-4.7); ABSOLUTE MONOCYTES (AUTO) 0.4 10^3/uL (0.1-1.4); ABSOLUTE NEUT (AUTO) 11.3 10^3/uL (1.7-8.2); BASOPHILS % (AUTO) 0.5 % (0-2); EOSINOPHILS % (AUTO) 0.2 % (0-6); HEMATOCRIT 41.6 % (36.0-47.0); HEMOGLOBIN 13.9 g/dL (12.0-15.5); LYMPHOCYTES % (AUTO) 9.4 % (13-45); MEAN CORPUSCULAR HEMOGLOBIN 30.9 pg (27.0-33.4); MEAN CORPUSCULAR HGB CONC 33.5 g/dL (32.0-36.0); MEAN CORPUSCULAR VOLUME 93 fl (80-97); MONOCYTES % (AUTO) 3.4 % (3-13); PLATELET COUNT 225 10^3/uL (150-450); RED CELL DISTRIBUTION WIDTH 13.7 % (11.5-14.0); SEGMENTED NEUTROPHILS % (AUTO) 86.5 % (42-78); TOTAL CELLS COUNTED % (AUTO) 100 %; WHITE BLOOD COUNT 13.1 10^3/uL (4.0-10.5)
[2020-04-16] MEDS ORDERED: HYDROMORPHONE HCL INJ/PF 2 MG/ML AMPULE IV ONE ×2 (08:44→09:50)
[2020-04-16] MEDS ORDERED: ONDANSETRON HCL INJ/PF 4 MG/2 ML SDV IV ONE (08:44)
[2020-04-16] MEDS ORDERED: NORMAL SALINE 1000 ML 1,000 ML IV ONE (08:44)
--- NOTE | 2020-04-16 08:49 | ER Document Report ---
ED General - General Chief Complaint: Abdominal Pain Stated Complaint: ABDOMINAL PAIN Time Seen by Provider: 04/16/20 08:31 Primary Care Provider: RAMO LACY FNP-C [NURSE PRACTITIONER] - Follow up as needed TRAVEL OUTSIDE OF THE [place] IN LAST 30 DAYS: No - HPI Notes: Patient is a 54-year-old female who presents to the emergency department for evaluation of abdominal pain. She had lasagna last night. About 40 minutes after eating she developed pain in her right upper quadrant with radiation down into her lower abdomen as well as around her back. She said multiple episodes of nonbloody emesis. Per her it may be bilious. She has had normal bowel movements. No fevers or chills. No urinary symptoms. She currently puts her pain at a 9 out of 10, states is a constant sharp and cramping pain. Nothing seems to make it better or worse. - Related Data Allergies/Adverse Reactions: adhesive tape Allergy (Verified 03/23/18 12:17) Blisters Home Medications: Nucynta, oxycodone, Trokendi, BuSpar, Topamax Past Medical History - General Information source: Patient - Social History Smoking Status: Former Smoker Drug Abuse: None Family History: Reviewed & Not Pertinent, Hypertension, Other - Recurrent superficial skin infections in mother and children Patient has homicidal ideation: No - Past Medical History Cardiac Medical History: Denies: Hx Heart Attack, Hx Hypertension Pulmonary Medical History: Denies: Hx Asthma Neurological Medical History: Reports: Hx Migraine. Denies: Hx Cerebrovascular Accident, Hx Seizures Renal/ Medical History: Reports: Hx Kidney Stones. Denies: Hx Peritoneal Dialysis GI Medical History: Denies: Hx Hepatitis, Hx Hiatal Hernia, Hx Ulcer Skin Medical History: Denies Hx Cellulitis, Denies Hx MRSA Psychiatric Medical History: Reports: Hx Anxiety Infectious Medical History: Denies: Hx Hepatitis Past Surgical History: Reports: Hx Appendectomy, Hx Section, Hx Hysterectomy, Hx Orthopedic Surgery - Lumbar fusion. Denies: Hx Mastectomy, Hx Open Heart Surgery, Hx Pacemaker - Immunizations Immunizations up to date: Yes Hx Diphtheria, Pertussis, Tetanus Vaccination: Yes Review of Systems - Review of Systems Constitutional: No symptoms reported EENT: No symptoms reported Cardiovascular: No symptoms reported Respiratory: No symptoms reported Gastrointestinal: See HPI Genitourinary: No symptoms reported Musculoskeletal: No symptoms reported Skin: No symptoms reported Neurological/Psychological: No symptoms reported -: Yes All other systems reviewed and negative Physical Exam - Vital signs Vitals: Temp Pulse Resp BP Pulse Ox 97.7 F 82 20 135/75 H 99 04/16/20 07:54 04/16/20 07:54 04/16/20 07:54 04/16/20 07:54 04/16/20 07:54 - Notes Notes: Is a 54-year-old female who appears her stated age, in a moderate amount of distress. She is clearly uncomfortable. Vital signs reviewed, please refer to chart. Head is normocephalic, atraumatic. Pupils equal round, reactive to light. Neck is supple without meningismus. Heart is regular rate and rhythm. Lungs are clear to auscultation bilaterally. Abdomen is moderately tender in th e right upper quadrant with some voluntary guarding, no rebound, normoactive bowel sounds throughout. Extremities without cyanosis, clubbing. Posterior calves are nontender. Peripheral pulses are equal. Skin is warm and dry. Patient is awake, alert, neurological exam is nonfocal. Course - Re-evaluation Re-evalutation: 04/16/20 08:49 Patient presents emergency department for evaluation. Laboratory investigations were ordered as per protocol. Patient will be administered Dilaudid, Zofran, IV fluids. Right upper quadrant ultrasound is ordered. She is currently stable, we will continue to monitor. 04/16/20 09:51 Patient does have a leukocytosis. She continues to have significant pain despite Dilaudid. Ultrasound reveals findings consistent with cholecystitis. Will consult surgery. 04/16/20 09:[address] Gordon. He will come down and evaluate the patient. Patient notified of findings. She is to be kept n.p.o. 04/16/20 10:45 Patient is stable. Patient will be admitted to the surgical floor under Dr. Gordon's service. - Vital Signs Vital signs: Temp Pulse Resp BP Pulse Ox 97.7 F 82 20 135/75 H 99 04/16/20 07:54 04/16/20 07:54 04/16/20 07:54 04/16/20 07:54 04/16/20 07:54 - Laboratory Result Diagrams: 04/16/20 08:02 04/16/20 08:02 Laboratory results interpreted by me: 04/16/20 04/16/20 08:02 08:02 WBC 13.1 H Lymph % (Auto) 9.4 L Absolute Neuts (auto) 11.3 H Seg Neutrophils % 86.5 H Chloride 108 H Carbon Dioxide 21 L Glucose 175 H - Diagnostic Test Radiology reviewed: Reports reviewed Radiology results interpreted by me: 04/16/20 09:51 Abdomen Ultrasound 04/16/20 08:44 IMPRESSION: Cholelithiasis and cholecystitis. Discharge - Discharge Clinical Impression: Acute cholecystitis Condition: Stable Disposition: ADMITTED OBSERVATION Admitting Provider: Surgicalist - Dr. Gordon Unit Admitted: Surgical Floor Referrals: RAMO LACY FNP-C [NURSE PRACTITIONER] - Follow up as needed
[2020-04-16 08:54] LABS: ALBUMIN 4.5 g/dL (3.5-5.0); ALKALINE PHOSPHATASE 122 U/L (38-126); ANION GAP 12 (5-19); ASPARTATE AMINO TRANSFERASE 19 U/L (14-36); BILIRUBIN,DIRECT 0.3 mg/dL (0.0-0.4); BILIRUBIN,TOTAL 0.3 mg/dL (0.2-1.3); BLOOD UREA NITROGEN 19 mg/dL (7-20); CALCIUM 9.9 mg/dL (8.4-10.2); CARBON DIOXIDE 21 mmol/L (22-30); CHLORIDE 108 mmol/L (98-107); GLUCOSE 175 mg/dL (75-110); POTASSIUM 4.1 mmol/L (3.6-5.0); TOTAL PROTEIN 7.5 g/dL (6.3-8.2)
--- NOTE | 2020-04-16 09:49 | RADIOLOGY REPORT (SQ) ---
EXAM DESCRIPTION: U/S ABDOMEN LIMITED W/O DOP IMAGES COMPLETED DATE/TIME: 04/16/2020 9:39 am REASON FOR STUDY: RUQ pain, eval gallbladder COMPARISON: None. TECHNIQUE: Dynamic and static grayscale images acquired of the abdomen and recorded on PACS. Additio nal selected color Doppler and spectral images recorded. LIMITATIONS: None. FINDINGS: PANCREAS: No masses. Visualized pancreatic duct normal caliber. LIVER: No masses. Echotexture normal. LIVER VASCULATURE: Normal directional flow of the main portal vein and hepatic veins. GALLBLADDER: Pericholecystic fluid. 3 mm wall. Stones and sludge. ULTRASOUND-DETECTED KLINE'S SIGN: Positive. INTRAHEPATIC DUCTS AND COMMON DUCT: CBD and intrahepatic ducts normal caliber. No filling defects. INFERIOR VENA CAVA: Normal flow. AORTA: No aneurysm. RIGHT KIDNEY: Normal size. Normal echogenicity. No solid or suspicious masses. No hydronephrosis. No calcifications. PERITONEAL AND RIGHT PLEURAL SPACE: No ascites or effusions. OTHER: No other significant findings. IMPRESSION: Cholelithiasis and cholecystitis. TECHNICAL DOCUMENTATION: JOB ID: [id number] 2010 [employer]- All Rights Reserved Reading location - IP/workstation name: [email or web address]
[2020-04-16 10:24] LABS: AMORPHOUS SEDIMENT,URINE 1+ /HPF; APPEARANCE,URINE TURBID; BILIRUBIN,URINE NEGATIVE (NEGATIVE); COLOR,URINE YELLOW; GLUCOSE, URINE NEGATIVE (NEGATIVE); KETONES,URINE NEGATIVE (NEGATIVE); LEUKOCYTE ESTERASE,URINE NEGATIVE (NEGATIVE); NITRITE,URINE NEGATIVE (NEGATIVE); PROTEIN,URINE NEGATIVE (NEGATIVE); URINE SPECIFIC GRAVITY 1.013; UROBILINOGEN,URINE NEGATIVE mg/dL (<2.0)
[2020-04-16] MEDS ORDERED: NEOSTIGMINE METHYLSULFATE 10 MG/10 ML VIAL ONE (10:29)
[2020-04-16] MEDS ORDERED: ONDANSETRON HCL INJ/PF 4 MG/2 ML SDV IV PRN (10:29)
[2020-04-16] MEDS ORDERED: GLYCOPYRROLATE 1 MG/5 ML VIAL ONE (10:29)
--- NOTE | 2020-04-16 11:51 | PDOC H&P ---
History of Present Illness Admission Date/PCP: GORDON JAMESON Patient complains of: Right upper quadrant pain, nausea, and vomiting History of Present Illness: JOSE ERWIN is a 54 year old female with a 1 day history of severe right upper quadrant abdominal pain. It started yesterday after eating a fatty meal. Her pain has been constant. It is worsening. She has had multiple episodes of nausea and vomiting. She continues to vomit, although she does not bring anything up except bile. She rates her pain as 10 out of 10. She reports that it is sharp and stabbing. She has never had symptoms similar to this before. She denies chest pain, fevers, chills, headache, dysuria, dizziness, blurry vision, orthostasis, shortness of breath. Nothing makes it better. Palpation makes it worse. Past Medical History Cardiac Medical History: Denies: Myocardial Infarction, Hypertension Pulmonary Medical History: Denies: Asthma Neurological Medical History: Reports: Migraine Denies: Seizures GI Medical History: Denies: Hepatitis, Hiatal Hernia Hematology: Denies: Anemia, Sickle Cell Disease Past Surgical History Past Surgical History: Reports: Appendectomy, Section, Hysterectomy, Orthopedic Surgery - Lumbar fusion Denies: Amputation, Mastectomy, Pacemaker Social History Smoking Status: Former Smoker Frequency of Alcohol Use: Occasional Hx Recreational Drug Use: No Drugs: None Hx Prescription Drug Abuse: No Family History Family History: Reviewed & Not Pertinent, Hypertension, Other - Recurrent superficial skin infections in mother and children Parental Family History Reviewed: Yes Children Family History Reviewed: Yes Sibling(s) Family History Reviewed.: Yes Medication/Allergy Home Medications: Ondansetron [Zofran Odt] 8 mg SL BIDP PRN 03/25/18 Oxycodone HCl 15 mg PO Q6 03/25/18 Quetiapine Fumarate [Seroquel 100 mg Tablet] 100 mg PO QPM 03/25/18 Sertraline HCl [Zoloft] 100 mg PO QPM 03/25/18 Tapentadol HCl [Nucynta ER] 100 mg PO BID 03/25/18 Topiramate [Topamax] 100 mg PO QPM 03/25/18 Gabapentin Enacarbil [Horizant] 300 mg PO QPM 04/16/20 Allergies/Adverse Reactions: adhesive tape Allergy (Verified 03/23/18 12:17) Blisters Review of Systems Constitutional: ABSENT: anorexia, chills, fatigue, fever(s) Eyes: ABSENT: visual disturbances Ears: ABSENT: hearing changes Nose, Mouth, and Throat: ABSENT: sore throat Cardiovascular: ABSENT: chest pain Respiratory: ABSENT: dyspnea Gastrointestinal: PRESENT: abdominal pain, bloating, nausea, vomiting. ABSENT: hematemesis, hematochezia, melena Genitourinary: ABSENT: dysuria Musculoskeletal: ABSENT: deformity Integumentary: ABSENT: pruritus, rash Neurological: ABSENT: confusion, convulsions, dizziness Psychiatric: ABSENT: anxiety, depression Endocrine: ABSENT: cold intolerance, heat intolerance Hematologic/Lymphatic: ABSENT: easy bleeding, easy bruising Physical Exam Vital Signs: Temp Pulse Resp BP Pulse Ox 97.7 F 82 20 135/75 H 99 04/16/20 07:54 04/16/20 07:54 04/16/20 07:54 04/16/20 07:54 04/16/20 07:54 Intake & Output 04/15/20 04/16/20 04/17/20 06:59 06:59 06:59 Intake Total 1000 Balance 1000 Weight 68.1 kg General appearance: PRESENT: mild distress - Abdominal discomfort Head exam: PRESENT: atraumatic, normocephalic Eye exam: PRESENT: EOMI, PERRLA. ABSENT: scleral icterus Mouth exam: PRESENT: moist, neck supple Neck exam: ABSENT: meningismus, tenderness, thyromegaly, tracheal deviation Respiratory exam: PRESENT: unlabored. ABSENT: tachypnea, wheezes Cardiovascular exam: ABSENT: tachycardia Pulses: PRESENT: normal radial pulses GI/Abdominal exam: PRESENT: Brice's sign, soft, tenderness - Right upper quadrant Rectal exam: PRESENT: deferred Extremities exam: ABSENT: clubbing Musculoskeletal exam: ABSENT: deformity Neurological exam: PRESENT: alert, awake, oriented to person, oriented to place, oriented to time, oriented to situation Psychiatric exam: ABSENT: agitated, anxious, depressed Focused psych exam: ABSENT: delusional Skin exam: ABSENT: cyanosis, erythema, jaundice Results Laboratory Results: 04/16/20 08:02 04/16/20 08:02 04/16/20 04/16/20 04/16/20 08:02 08:02 09:47 WBC 13.1 H RBC 4.50 Hgb 13.9 Hct 41.6 MCV 93 MCH 30.9 MCHC 33.5 RDW 13.7 Plt Count 225 Seg Neutrophils % 86.5 H Sodium 140.8 Potassium 4.1 Chloride 108 H Carbon Dioxide 21 L Anion Gap 12 BUN 19 Creatinine 0.81 Est GFR ( Amer) > 60 Glucose 175 H Calcium 9.9 Total Bilirubin 0.3 AST 19 Alkaline Phosphatase 122 Total Protein 7.5 Albumin 4.5 Lipase 194.0 Urine Color YELLOW Urine Appearance TURBID Urine pH 8.0 Ur Specific [place] 1.013 Urine Protein NEGATIVE Urine Glucose (UA) NEGATIVE Urine Ketones NEGATIVE Urine Blood NEGATIVE Urine Nitrite NEGATIVE Ur Leukocyte Esterase NEGATIVE Urine RBC (Auto) 4 Impressions: Abdomen Ultrasound 04/16/20 08:44 IMPRESSION: Cholelithiasis and cholecystitis. Assessment & Plan - Diagnosis (1) Acute cholecystitis Is this a current diagnosis for this admission?: Yes - Time Anticipated Discharge Disposition: Home, Self Care Anticipated Discharge Timeframe: within 48 hours - Plan Summary Plan Summary: 54-year-old female with right upper quadrant abdominal pain, nausea, and vomiting. She presents to the ER for evaluation. She has an ultrasound showing pericholecystic fluid and a thickened gallbladder wall. She has an elevated white blood cell count. She has tenderness on exam, consistent with acute cholecystitis. Plan for rapid Covid test now. Surgery today. Risks/benefits discussed, informed consent obtained, and all questions answered.
[2020-04-16] MEDS ORDERED: FENTANYL CITRATE INJ/PF 100 MCG/2 ML AMPUL ONE (12:11)
[2020-04-16] MEDS ORDERED: MIDAZOLAM 2 MG/2 ML INJ ONE (12:11)
[2020-04-16] MEDS ORDERED: ONDANSETRON HCL INJ/PF 4 MG/2 ML SDV ONE ×2 (12:11→12:21)
[2020-04-16] MEDS ORDERED: PROPOFOL INJ 200 MG/20 ML VIAL IV ONE (12:11)
[2020-04-16] MEDS ORDERED: DEXAMETHASONE SOD PHOSPHATE INJ 4 MG/1 ML VIAL ONE (12:11)
[2020-04-16] MEDS ORDERED: HYDROMORPHONE HCL INJ/PF 2 MG/ML AMPULE ONE (12:11)
[2020-04-16] MEDS ORDERED: LIDOCAINE 2% INJ-PF (20 MG/ML) 10 ML AMPUL ONE (12:11)
[2020-04-16] MEDS ORDERED: BUPIVACAINE HCL 0.25 % INJ/PF (2.5 MG/1 ML) 30 ML VIAL ONE (12:25)
[2020-04-16] MEDS: PIPERACILLIN SODIUM/TAZOBACTAM 3.375 GM in NORMAL SALINE 100 ML IV SCH ×3 (13:00→23:27)
[2020-04-16] MEDS ORDERED: MEPERIDINE HCL/PF INJ 25 MG/1 ML DISP.SYRIN IV PRN (13:01)
[2020-04-16] MEDS ORDERED: MORPHINE SULFATE 10 MG/ML INJ IV PRN (13:01)
[2020-04-16] MEDS ORDERED: FENTANYL CITRATE INJ/PF 100 MCG/2 ML AMPUL IV PRN ×3 (13:01)
[2020-04-16] MEDS ORDERED: OXYCODONE-ACETAMINOPHEN 5-325 MG TABLET PO PRN ×2 (13:01)
[2020-04-16] MEDS ORDERED: PROMETHAZINE HCL INJ 25 MG/1 ML VIAL IV PRN ×2 (13:01)
[2020-04-16] MEDS ORDERED: DIPHENHYDRAMINE HCL 50 MG/ML VIAL IV PRN (13:01)
[2020-04-16] MEDS ORDERED: OXYCODONE HCL IR 5 MG TABLET PO PRN (14:25)
[2020-04-16] MEDS: FENTANYL CITRATE INJ/PF 100 MCG/2 ML AMPUL ONE ×2 (14:30→14:35)
[2020-04-16] MEDS: KETOROLAC TROMETHAMINE INJ/PF 30 MG/1 ML SDV IV SCH ×2 (15:23→23:26)
[2020-04-16] MEDS: ACETAMINOPHEN 1,000 MG/100 ML RTUPB IV SCH ×2 (15:25→23:26)
[2020-04-16] MEDS: HYDROMORPHONE HCL INJ/PF 2 MG/ML AMPULE IV PRN ×2 (19:53→23:42)
[2020-04-16] MEDS: DEXTROSE 5%-LACTATED RINGERS 1,000 ML IV PRN (20:06)
--- NOTE | 2020-04-16 20:44 | Operative Report ---
Nonrecallable Operative Report DATE OF SURGERY: 04/16/20 PREOPERATIVE DIAGNOSIS: Acute cholecystitis POSTOPERATIVE DIAGNOSIS: Acute cholecystitis OPERATION: Laparoscopic cholecystectomy SURGEON: JAMES POST ANESTHESIA: GA TISSUE REMOVED OR ALTERED: Gallbladder COMPLICATIONS: None apparent ESTIMATED BLOOD LOSS: 50 cc PROCEDURE: Drains/implants: None. Procedure in detail: After informed consent was obtained, the patient was brought into the operating room and laid in the supine position. The area of the abdomen was prepped and draped in a normal sterile fashion. The supraumbilical incision was created with a 15 blade scalpel. Dissection was carried through the subcutaneous tissues using sharp and blunt dissection. The linea alba fascia was incised sharply, the abdomen was entered sharply. The balloon trocar was inserted, and pneumoperitoneum was achieved. A subxiphoid 5 mm port was then placed under direct laparoscopic visualization. 2 more 5 mm ports were placed in the right upper quadrant in similar fashion. Atraumatic graspers were placed through the 5 mm ports. The gallbladder was tense and distended. A cyst aspiration needle was used to aspirate approximately 60 cc of thick green bile from the gallbladder. The gallbladder was then retracted cephalad and laterally. Dissection was begun in the triangle of Calot. The cystic duct and cystic artery were fully visualized and skeletonized, seeing the liver through the triangle. This was somewhat difficult, owing to the acute inflammation. It was successful. The cystic duct was very dilated due to a large stone impacted in the neck of the gallbladder. The cystic artery was clipped and cut with laparoscopic instruments, after the critical view of safety was obtained. The cystic duct appeared dilated, and it was felt that a PDS Endoloop would be a better option to secure the duct. The gallbladder was then freed from the liver using a mixture of sharp dissection, blunt dissection, and electrocautery. Once the gallbladder was freed, the infundibulum was secured with a PDS Endoloop. The gallbladder was divided, and placed into an Endo Catch bag. The bag was pulled out through the supraumbilical port. The camera was reinserted. The hilum was inspected. It was found to be free of any leakage of blood or bile. Abdomen was then copiously irrigated and suctioned, until the effluent was clear. Next, the 5 mm trochars were removed under direct laparoscopic visualization. The supraumbilical trocar was removed, and pneumoperitoneum was relieved. The supraumbilical fascia was closed using 0 Vicryl suture in [id number] fashion. The overlying skin was closed in 4-0 Vicryl Rapide suture in subcuticular fashion. Dressings were placed, and the procedure was concluded. All sponge, instrument, and needle counts were correct x2. Condition: Stable.
[2020-04-16] MEDS ORDERED: FAMOTIDINE INJ/PF 20 MG/2 ML SDV IV SCH (22:00)
[2020-04-17] MEDS: HYDROMORPHONE HCL INJ/PF 2 MG/ML AMPULE IV PRN ×2 (02:45→06:05)
[2020-04-17] MEDS: PIPERACILLIN SODIUM/TAZOBACTAM 3.375 GM in NORMAL SALINE 100 ML IV SCH (05:06)
[2020-04-17] MEDS: KETOROLAC TROMETHAMINE INJ/PF 30 MG/1 ML SDV IV SCH (05:06)
[2020-04-17] MEDS: ACETAMINOPHEN 1,000 MG/100 ML RTUPB IV SCH (05:06)
[2020-04-17 05:44] LABS: ABSOLUTE LYMPHOCYTES (AUTO) 2.1 10^3/uL (0.5-4.7); ABSOLUTE MONOCYTES (AUTO) 0.6 10^3/uL (0.1-1.4); ABSOLUTE NEUT (AUTO) 9.6 10^3/uL (1.7-8.2); BASOPHILS % (AUTO) 0.2 % (0-2); EOSINOPHILS % (AUTO) 0.2 % (0-6); HEMATOCRIT 36.1 % (36.0-47.0); LYMPHOCYTES % (AUTO) 17.2 % (13-45); MEAN CORPUSCULAR HEMOGLOBIN 31.5 pg (27.0-33.4); MEAN CORPUSCULAR HGB CONC 33.3 g/dL (32.0-36.0); MEAN CORPUSCULAR VOLUME 95 fl (80-97); MONOCYTES % (AUTO) 5.1 % (3-13); PLATELET COUNT 176 10^3/uL (150-450); RED BLOOD COUNT 3.83 10^6/uL (3.72-5.28); SEGMENTED NEUTROPHILS % (AUTO) 77.3 % (42-78); TOTAL CELLS COUNTED % (AUTO) 100 %; WHITE BLOOD COUNT 12.4 10^3/uL (4.0-10.5)
[2020-04-17] MEDS: DEXTROSE 5%-LACTATED RINGERS 1,000 ML IV PRN (06:05)
[2020-04-17 06:09] LABS: ALBUMIN 3.8 g/dL (3.5-5.0); ALKALINE PHOSPHATASE 84 U/L (38-126); ANION GAP 9 (5-19); ASPARTATE AMINO TRANSFERASE 66 U/L (14-36); BILIRUBIN,DIRECT 0.4 mg/dL (0.0-0.4); BILIRUBIN,TOTAL 0.4 mg/dL (0.2-1.3); BLOOD UREA NITROGEN 11 mg/dL (7-20); CALCIUM 8.9 mg/dL (8.4-10.2); CARBON DIOXIDE 22 mmol/L (22-30); CHLORIDE 110 mmol/L (98-107); GLUCOSE 83 mg/dL (75-110); TOTAL PROTEIN 6.4 g/dL (6.3-8.2)
[2020-04-17] MEDS ORDERED: INFLUENZA QUAD (6MOS+) 2020-21 VAC 0.5 ML SYR IM ONE (08:00)
[2020-04-17 08:52] VITALS: BP 98/55
--- NOTE | 2020-04-17 09:26 | PDOC DISCHARGE SUMMARY ---
General - Admit/Disc Date/PCP Admission Date/Primary Care Provider: 04/16/20 11:24 GORDON JAMESON Discharge Date: 04/17/20 - Discharge Diagnosis Final Diagnosis: Acute cholecystitis - Assessment Summary: 54-year-old female admitted with acute cholecystitis. She was taken to the operating room for surgical intervention. Laparoscopic cholecystectomy was successfully performed. The patient was taken to the floor in stable condition. She began tolerating a diet, ambulating, and tolerating oral pain medications. By 04/17/2020, it is felt that the patient has reached maximal and is fit for discharge. - Additional Information Resuscitation Status: Full Code Discharge Diet: As Tolerated Discharge Activity: No Lifting Over 10 Pounds, No Lifting/Push/Pulling Referrals: RAMO LACY FNP-C [NURSE PRACTITIONER] - Follow up as needed Prescriptions: Oxycodone HCl [Oxy-Ir 5 mg Tablet] 15 mg PO Q4HP PRN #20 tablet PRN Reason: Home Medications: Ondansetron [Zofran Odt] 8 mg SL BIDP PRN 03/25/18 Quetiapine Fumarate [Seroquel 100 mg Tablet] 100 mg PO QPM 03/25/18 Sertraline HCl [Zoloft] 100 mg PO BID 03/25/18 Tapentadol HCl [Nucynta ER] 100 mg PO BID 03/25/18 Topiramate [Topamax] 100 mg PO QPM 03/25/18 Gabapentin Enacarbil [Horizant] 300 mg PO QPM 04/16/20 Oxycodone HCl [Oxy-Ir 5 mg Tablet] 15 mg PO Q4HP PRN #20 tablet 04/17/20 History of Present Illiness History of Present Illness: JOSE ERWIN is a 54 year old female with a 1 day history of severe right upper quadrant abdominal pain. It started yesterday after eating a fatty meal. Her pain has been constant. It is worsening. She has had multiple episodes of nausea and vomiting. She continues to vomit, although she does not bring anything up except bile. She rates her pain as 10 out of 10. She reports that it is sharp and stabbing. She has never had symptoms similar to this before. She denies chest pain, fevers, chills, headache, dysuria, dizziness, blurry vision, orthostasis, shortness of breath. Nothing makes it better. Palpation makes it worse. Physical Exam Vital Signs: Temp Pulse Resp BP Pulse Ox 98.5 F 72 17 98/55 L 96 04/17/20 07:55 04/17/20 07:55 04/17/20 07:55 04/17/20 07:55 04/17/20 07:55 Intake & Output 04/16/20 04/17/20 04/18/20 06:59 06:59 06:59 Intake Total 6820 Output Total 2525 Balance 4295 Weight 69.2 kg Results Laboratory Results: WBC 12.4 10^3/uL (4.0-10.5) H 04/17/20 04:52 RBC 3.83 10^6/uL (3.72-5.28) 04/17/20 04:52 Hgb 12.0 g/dL (12.0-15.5) 04/17/20 04:52 Hct 36.1 % (36.0-47.0) 04/17/20 04:52 MCV 95 fl (80-97) 04/17/20 04:52 MCH 31.5 pg (27.0-33.4) 04/17/20 04:52 MCHC 33.3 g/dL (32.0-36.0) 04/17/20 04:52 RDW 14.0 % (11.5-14.0) 04/17/20 04:52 Plt Count 176 10^3/uL (150-450) 04/17/20 04:52 Lymph % (Auto) 17.2 % (13-45) 04/17/20 04:52 Tyrrell % (Auto) 5.1 % (3-13) 04/17/20 04:52 Eos % (Auto) 0.2 % (0-6) 04/17/20 04:52 Baso % (Auto) 0.2 % (0-2) 04/17/20 04:52 Absolute Neuts (auto) 9.6 10^3/uL (1.7-8.2) H 04/17/20 04:52 Absolute Lymphs (auto) 2.1 10^3/uL (0.5-4.7) 04/17/20 04:52 Absolute Monos (auto) 0.6 10^3/uL (0.1-1.4) 04/17/20 04:52 Absolute Eos (auto) 0.0 10^3/uL (0.0-0.6) 04/17/20 04:52 Absolute Basos (auto) 0.0 10^3/uL (0.0-0.2) 04/17/20 04:52 Seg Neutrophils % 77.3 % (42-78) 04/17/20 04:52 Sodium 141.3 mmol/L (137-145) 04/17/20 04:52 Potassium 4.0 mmol/L (3.6-5.0) 04/17/20 04:52 Chloride 110 mmol/L (98-107) H 04/17/20 04:52 Carbon Dioxide 22 mmol/L (22-30) 04/17/20 04:52 Anion Gap 9 (5-19) 04/17/20 04:52 BUN 11 mg/dL (7-20) 04/17/20 04:52 Creatinine 0.87 mg/dL (0.52-1.25) 04/17/20 04:52 Est GFR ( Amer) > 60 (>60) 04/17/20 04:52 Est GFR (MDRD) Non-Af > 60 (>60) 04/17/20 04:52 Glucose 83 mg/dL (75-110) 04/17/20 04:52 Calcium 8.9 mg/dL (8.4-10.2) 04/17/20 04:52 Total Bilirubin 0.4 mg/dL (0.2-1.3) 04/17/20 04:52 Direct Bilirubin 0.4 mg/dL (0.0-0.4) 04/17/20 04:52 Neonat Total Bilirubin Not Reportable 04/17/20 04:52 Neonat Direct Bilirubin Not Reportable 04/17/20 04:52 Neonat Indirect Bili Not Reportable 04/17/20 04:52 AST 66 U/L (14-36) H 04/17/20 04:52 ALT 58 U/L (<35) H 04/17/20 04:52 Alkaline Phosphatase 84 U/L (38-126) 04/17/20 04:52 Total Protein 6.4 g/dL (6.3-8.2) 04/17/20 04:52 Albumin 3.8 g/dL (3.5-5.0) 04/17/20 04:52 Lipase 194.0 U/L (23-300) 04/16/20 08:02 Urine Color YELLOW 04/16/20 09:47 Urine Appearance TURBID 04/16/20 09:47 Urine pH 8.0 (5.0-9.0) 04/16/20 09:47 Ur Specific [place] 1.013 04/16/20 09:47 Urine Protein NEGATIVE mg/dL (NEGATIVE) 04/16/20 09:47 Urine Glucose (UA) NEGATIVE mg/dL (NEGATIVE) 04/16/20 09:47 Urine Ketones NEGATIVE mg/dL (NEGATIVE) 04/16/20 09:47 Urine Blood NEGATIVE (NEGATIVE) 04/16/20 09:47 Urine Nitrite NEGATIVE (NEGATIVE) 04/16/20 09:47 Urine Bilirubin NEGATIVE (NEGATIVE) 04/16/20 09:47 Urine Urobilinogen NEGATIVE mg/dL (<2.0) 04/16/20 09:47 Ur Leukocyte Esterase NEGATIVE (NEGATIVE) 04/16/20 09:47 Urine RBC (Auto) 4 /HPF 04/16/20 09:47 Amorphous Sediment Auto 1+ /HPF 04/16/20 09:47 Urine Mucus (Auto) RARE /LPF 04/16/20 09:47 Urine Ascorbic Acid NEGATIVE (NEGATIVE) 04/16/20 09:47 SARS-CoV-2 (PCR) NEGATIVE (NEGATIVE) 04/16/20 10:35 Impressions: Abdomen Ultrasound 04/16/20 08:44 IMPRESSION: Cholelithiasis and cholecystitis.
== END 2020-04-17 10:10 | disposition home or self-care (01) ==
LOC: ER 07:45 → EH 11:24 → 4N 15:17
PROVIDERS: ATTEND Surgery
DX: K80.12 Calculus of gallbladder with acute and chronic cholecystitis without obstruction (principal); Z23 Encounter for immunization; Z03.818 Encounter for observation for suspected exposure to other biological agents ruled out; Z87.891 Personal history of nicotine dependence; G43.909 Migraine, unspecified, not intractable, without status migrainosus; Z79.899 Other long term (current) drug therapy; Z87.442 Personal history of urinary calculi; Z90.49 Acquired absence of other specified parts of digestive tract; Z90.710 Acquired absence of both cervix and uterus
CPT/HCPCS: 99285; 96361; 96374; 96375; 36415 ×2; 83690; 85025 ×2; 87635; 80053 ×2; 81001; 88304 ×2; 76705; 90686; 00790; 47562; G0378 ×3; G0008; J2250; J1100; J3010; J1885 ×2; J2710; J1170 ×2; J2405; J7121 ×2; J7050 ×2; J7030; J2704; S0028; J3490 ×2; J2543 ×2; J0131 ×2; C9803; 790; 90471

== ENCOUNTER → 2020-05-12 | Outpatient (CLI) | payer OTHER ==
--- NOTE | 2020-05-12 12:56 | RADIOLOGY REPORT (SQ) ---
EXAM DESCRIPTION: UGI W/ SINGLE CONTRAST IMAGES COMPLETED DATE/TIME: 05/12/2020 10:12 am REASON FOR STUDY: GALLBLADDER DYSPLASIZ R12 HEARTBURN COMPARISON: None. TECHNIQUE: Under fluoroscopic guidance, patient ingested effervescent granules followed by thick and thin barium. Fluoroscopic spot images and routine radiographic images acquired and stored on PACS. 12 MM BARIUM TABLET GIVEN: Barium tablet passed through the esophagus and into the stomach without de lay. LIMITATIONS: None. FLUOROSCOPY TIME: FLUORO TIME: 1.8 16 images saved to PACS. FINDINGS: NEUROMUSCULAR COORDINATION OF SWALLOW: Normal. No aspiration. ESOPHAGEAL MOTILITY: Normal peristalsis. No esophageal spasm. ESOPHAGEAL MUCOSA: Normal mucosa without masses or ulceration. GASTRO-ESOPHAGEAL JUNCTION: A small hiatal hernia is present. No gastroesophageal reflux seen. STOMACH: Normal without masses or ulcerations. GASTRIC OUTLET: No delay in emptying. Normal pylorus. DUODENAL BULB: Normal distention. No spasm or ulceration. DUODENUM: Mucosa normal. No extrinsic masses or malrotation. PROXIMAL SMALL BOWEL: Mucosa normal. No extrinsic masses or malrotation. NON-GI TRACT STRUCTURES: No significant finding. OTHER: No other significant finding. IMPRESSION: SMALL HIATAL HERNIA. OTHERWISE UNREMARKABLE STUDY. COMMENT: None Quality ID [id number]: Final reports for procedures using fluoroscopy that document radiation exposure steve maykel, or exposure time and number of fluorographic images (if radiation exposure indices are not avail able) TECHNICAL DOCUMENTATION: JOB ID: [id number] 2010 [employer] All Rights Reserved Reading location - IP/workstation name: [email or web address] [email or web address]
== END ==
LOC: RAD 09:18
PROVIDERS: ATTEND Surgery
DX: K44.9 Diaphragmatic hernia without obstruction or gangrene (principal); K82.8 Other specified diseases of gallbladder; R12 Heartburn
CPT/HCPCS: 74240

== ENCOUNTER 2020-06-09 06:55 | Inpatient (IN) | payer OTHER ==
[2020-06-06 10:42] LABS: HEMATOCRIT 41.3 % (36.0-47.0); HEMOGLOBIN 13.6 g/dL (12.0-15.5); MEAN CORPUSCULAR HEMOGLOBIN 30.4 pg (27.0-33.4); MEAN CORPUSCULAR HGB CONC 32.8 g/dL (32.0-36.0); MEAN CORPUSCULAR VOLUME 93 fl (80-97); PLATELET COUNT 191 10^3/uL (150-450); RED BLOOD COUNT 4.46 10^6/uL (3.72-5.28); RED CELL DISTRIBUTION WIDTH 13.4 % (11.5-14.0)
[2020-06-06 11:06] LABS: ANION GAP 10 (5-19); BLOOD UREA NITROGEN 16 mg/dL (7-20); CALCIUM 9.7 mg/dL (8.4-10.2); CARBON DIOXIDE 21 mmol/L (22-30); CHLORIDE 110 mmol/L (98-107); GLUCOSE 99 mg/dL (75-110); POTASSIUM 4.6 mmol/L (3.6-5.0)
[~2020-06-09 06:55] MED LIST changes: -CEFAZOLIN 1 GM/D5W RTU 1 GM/50 ML RTUPB IV PRN; +CEFAZOLIN 2 GM/D5W RTU 2 GM/50 ML RTUPB IV ONE; +CEFAZOLIN 2 GM/D5W RTU 2 GM/50 ML RTUPB IV PRN; -DIPHENHYDRAMINE HCL 50 MG/ML VIAL ONE; -FENTANYL CITRATE INJ/PF 100 MCG/2 ML AMPUL ONE; -KETOROLAC TROMETHAMINE 60 MG/2 ML SDV ONE; +LACTATED RINGERS 1000 ML IV PRN; -LIDOCAINE 2% INJ-PF (20 MG/ML) 10 ML AMPUL ONE; -MIDAZOLAM 2 MG/2 ML INJ ONE; -PROPOFOL INJ 200 MG/20 ML VIAL IV ONE
[2020-06-09] MEDS ORDERED: BUPIVACAINE INJ/PF LIPOSOME/PF 266 MG/20 ML SDV ONE ×2 (07:06→08:45)
[2020-06-09] MEDS ORDERED: MIDAZOLAM 2 MG/2 ML INJ ONE (08:53)
[2020-06-09] MEDS ORDERED: FENTANYL CITRATE INJ/PF 100 MCG/2 ML AMPUL ONE ×2 (08:53→12:28)
[2020-06-09] MEDS ORDERED: DEXAMETHASONE SOD PHOSPHATE INJ 4 MG/1 ML VIAL ONE (08:53)
[2020-06-09] MEDS ORDERED: LIDOCAINE 2% INJ-PF (20 MG/ML) 10 ML AMPUL ONE (08:53)
[2020-06-09] MEDS ORDERED: PROPOFOL INJ 200 MG/20 ML VIAL IV ONE (08:53)
[2020-06-09] MEDS ORDERED: ONDANSETRON HCL INJ/PF 4 MG/2 ML SDV ONE (08:53)
[2020-06-09] MEDS ORDERED: DIPHENHYDRAMINE HCL 50 MG/ML VIAL IV PRN (09:23)
[2020-06-09] MEDS ORDERED: PROMETHAZINE HCL INJ 25 MG/1 ML VIAL IV PRN ×2 (09:23)
[2020-06-09] MEDS ORDERED: OXYCODONE-ACETAMINOPHEN 5-325 MG TABLET PO PRN ×2 (09:23)
[2020-06-09] MEDS ORDERED: FENTANYL CITRATE INJ/PF 100 MCG/2 ML AMPUL IV PRN ×2 (09:23)
[2020-06-09] MEDS ORDERED: MEPERIDINE HCL/PF INJ 25 MG/1 ML DISP.SYRIN IV PRN (09:23)
[2020-06-09] MEDS ORDERED: MORPHINE SULFATE 10 MG/ML INJ IV PRN (09:23)
[2020-06-09] MEDS ORDERED: HYDROMORPHONE HCL INJ/PF 2 MG/ML AMPULE ONE (10:28)
[2020-06-09] MEDS: FENTANYL CITRATE INJ/PF 100 MCG/2 ML AMPUL IV PRN ×2 (12:33→12:38)
--- NOTE | 2020-06-09 12:36 | Operative Report ---
Nonrecallable Operative Report DATE OF SURGERY: 06/09/20 PREOPERATIVE DIAGNOSIS: Gallbladder dysplasia POSTOPERATIVE DIAGNOSIS: Same OPERATION: Portal lymph node dissection with partial hepatectomy SURGEON: KENNY YATES 1ST CORK INSULATION INSTALLER: СВЕТЛАНА DODGE TISSUE REMOVED OR ALTERED: Portal lymph node dissection as well as partial hepatectomy COMPLICATIONS: None ESTIMATED BLOOD LOSS: 400 cc INTRAOPERATIVE FINDINGS: See note PROCEDURE: Patient was brought to the operating when awake alert stable condition placed on the operative table supine position induced under general anesthesia intubated. The abdomen was prepped draped usual sterile fashion for the procedure. After appropriate timeout and site verification the procedure commenced. A Sri incision was made in the right upper quadrant with a 10 blade dissection was carried down through subtenons tissue with Bovie cautery the r ectus fascia anterior sheath was divided with Bovie cautery the muscle was also divided. The posterior sheath was opened. The falciform ligament was divided with the LigaSure device. The big boy retractor was then placed in the right upper quadrant for ease retraction. First we kocherized the duodenum by incising the peritoneum and mobilize the duodenum medially then we gained access to the lesser sac identify the proper hepatic artery and traced out the common hepatic artery. Once we did identify the gastroduodenal artery this was doubly ligated and divided. This allowed us to identify the portal vein we incised the peritoneum on the inferior aspect of the portal vein at the neck of the pancreas all the way over to the common bile duct. I then began dissecting all the fibrofatty tissue off the portal triad with blunt and sharp dissection. Once we reached the hilum of the liver I incised the fibrofatty tissue laterally and continued the dissection medially up over the hepatic artery and bile duct. The scope was continued to we reached the previously placed cystic duct clip. I dissected the cystic duct out to the bile duct and redivided at between 0 silk ligatures. I can I use the old cystic duct as a handle and mobilized the remaining gallbladder as well as the fibrofatty tissue around that up to the hilum of the liver. Once this is completely freed away from the portal triad we then turned attention to the parenchyma of the liver. I incised the liver capsule with Bovie cautery along the edges of the previous gallbladder bed about a centimeter from the gallblad tung bed circumferentially around the inferior aspect of the liver. Then using the LigaSure device we began dividing parenchyma about a centimeter back from the gallbladder bed. Hemostasis was obtained with the LigaSure device and hemoclips. We continued this dissection from the anterior edge of the liver down towards the port. Hemostasis again was obtained with either Bovie cautery LigaSure device or hemoclips. About a 6 cm section of gallbladder bed was excised along with the portal lymph nodes. This specimen was then removed. Hemostasis of the liver bed was obtained with 1 [id number] placed 0 chromic suture and then Bovie cautery. We then sprayed the liver bed with Tisseel tissue sealant and then Surgicel. Pressure was applied to we get good hemostasis. We then placed a Prudencio-Jeffers drain in the brad hepatis and brought out through a stab wound in the right lower quadrant we closed the posterior sheath with a running 0 PDS suture and the anterior sheath was closed with interrupted #2 polyp Polysorb sutures skin was closed with standard skin clips which completed the procedure. Estimated blood loss for the procedure was 400 cc sponge needle counts were correct x2. RICARDO Butt was present for the entire procedure help with wound retraction wound closure. The patient was then awakened in the operating extubated transferred recovery in stable condition. Exparel approximately 20 cc were utilized for anesthesia in the subcutaneous tissue and the muscle fascia at the termination of the procedure.
[2020-06-09] MEDS: CEFAZOLIN 1 GM/D5W RTU 1 GM/50 ML RTUPB IV SCH ×2 (14:58→21:57)
[2020-06-09] MEDS: HYDROMORPHONE HCL INJ/PF 2 MG/ML AMPULE IV PRN ×3 (14:58→23:33)
[2020-06-09] MEDS: POTASSI CL 20 MEQ/D5-1/2NS 1L 1,000 ML IV PRN ×2 (14:59→23:34)
[2020-06-09] MEDS ORDERED: GLYCOPYRROLATE 1 MG/5 ML VIAL ONE (15:02)
[2020-06-09] MEDS ORDERED: NEOSTIGMINE METHYLSULFATE 10 MG/10 ML VIAL ONE (15:02)
[2020-06-09] MEDS ORDERED: PHENYLEPHRINE HCL INJ/PF 10 MG/1 ML SDV ONE (15:02)
[2020-06-09] MEDS ORDERED: KETOROLAC TROMETHAMINE 60 MG/2 ML SDV ONE (15:02)
[2020-06-09] MEDS: FAMOTIDINE INJ/PF 20 MG/2 ML SDV IV SCH (21:57)
[2020-06-10] MEDS: HYDROMORPHONE HCL INJ/PF 2 MG/ML AMPULE IV PRN ×5 (03:34→20:45)
[2020-06-10] MEDS: CEFAZOLIN 1 GM/D5W RTU 1 GM/50 ML RTUPB IV SCH ×3 (05:59→21:54)
[2020-06-10 06:07] LABS: ABSOLUTE EOSINOPHILS # (AUTO) 0.1 10^3/uL (0.0-0.6); ABSOLUTE LYMPHOCYTES (AUTO) 1.4 10^3/uL (0.5-4.7); ABSOLUTE MONOCYTES (AUTO) 0.6 10^3/uL (0.1-1.4); BASOPHILS % (AUTO) 0.3 % (0-2); EOSINOPHILS % (AUTO) 1.1 % (0-6); HEMATOCRIT 32.9 % (36.0-47.0); HEMOGLOBIN 10.9 g/dL (12.0-15.5); LYMPHOCYTES % (AUTO) 12.3 % (13-45); MEAN CORPUSCULAR HEMOGLOBIN 30.9 pg (27.0-33.4); MEAN CORPUSCULAR VOLUME 94 fl (80-97); MONOCYTES % (AUTO) 5.6 % (3-13); PLATELET COUNT 208 10^3/uL (150-450); RED BLOOD COUNT 3.52 10^6/uL (3.72-5.28); RED CELL DISTRIBUTION WIDTH 13.6 % (11.5-14.0); SEGMENTED NEUTROPHILS % (AUTO) 80.7 % (42-78); TOTAL CELLS COUNTED % (AUTO) 100 %; WHITE BLOOD COUNT 11.2 10^3/uL (4.0-10.5)
[2020-06-10 06:12] LABS: ANION GAP 9 (5-19); BLOOD UREA NITROGEN 19 mg/dL (7-20); CALCIUM 8.7 mg/dL (8.4-10.2); CARBON DIOXIDE 24 mmol/L (22-30); CHLORIDE 104 mmol/L (98-107); GLUCOSE 122 mg/dL (75-110); POTASSIUM 4.4 mmol/L (3.6-5.0)
[2020-06-10] MEDS: POTASSI CL 20 MEQ/D5-1/2NS 1L 1,000 ML IV PRN ×2 (08:26→16:40)
[2020-06-10] MEDS: FAMOTIDINE INJ/PF 20 MG/2 ML SDV IV SCH ×2 (10:30→21:54)
--- NOTE | 2020-06-10 11:36 | PDOC PROGRESS REPORT ---
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;MALIGNANT NEOPLASM OF GALLBLADDER Physical Exam Vital Signs: Temp Pulse Resp BP Pulse Ox 98.7 F 101 H 17 124/74 97 06/10/20 07:28 06/10/20 07:28 06/10/20 07:28 06/10/20 07:28 06/10/20 07:28 Intake & Output 06/09/20 06/10/20 06/11/20 06:59 06:59 06:59 Intake Total 3788 1000 Output Total 880 Balance 2908 1000 Weight 60.3 kg General appearance: PRESENT: no acute distress Head exam: PRESENT: normocephalic Eye exam: PRESENT: EOMI Ear exam: PRESENT: normal external ear exam Mouth exam: PRESENT: moist Teeth exam: PRESENT: poor dentation Neck exam: PRESENT: full ROM Respiratory exam: PRESENT: clear to auscultation yany Cardiovascular exam: PRESENT: RRR Pulses: PRESENT: +2 pedal pulses bilateral Breast: PRESENT: Normal GI/Abdominal exam: PRESENT: soft, other - incision clean polina iwth min op Rectal exam: PRESENT: deferred Extremities exam: PRESENT: full ROM Neurological exam: PRESENT: alert, awake, oriented to person, oriented to place Psychiatric exam: PRESENT: appropriate affect Skin exam: PRESENT: dry Results Laboratory Results: 06/10/20 05:05 06/10/20 05:05 06/10/20 06/10/20 05:05 05:05 WBC 11.2 H RBC 3.52 L Hgb 10.9 L Hct 32.9 L MCV 94 MCH 30.9 MCHC 33.0 RDW 13.6 Plt Count 208 Seg Neutrophils % 80.7 H Sodium 136.5 L Potassium 4.4 Chloride 104 Carbon Dioxide 24 Anion Gap 9 BUN 19 Creatinine 1.05 Est GFR ( Amer) > 60 Glucose 122 H Calcium 8.7 Lipase 413.1 H Assessment & Plan - Time Anticipated Discharge Disposition: Home, Self Care Anticipated Discharge Timeframe: within 48 hours - Plan Summary Plan Summary: pod 1 s/p portal node dissection with partial hepatectomy doing well today pain fairly well controlled labs reviwed will dc bahena advance to full liquids Dr Alfonso will follow in my abscence.
[2020-06-11] MEDS: HYDROMORPHONE HCL INJ/PF 2 MG/ML AMPULE IV PRN ×5 (00:57→19:06)
[2020-06-11] MEDS: CEFAZOLIN 1 GM/D5W RTU 1 GM/50 ML RTUPB IV SCH ×3 (05:21→21:08)
--- NOTE | 2020-06-11 08:19 | PDOC PROGRESS REPORT ---
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 Physical Exam Vital Signs: Temp Pulse Resp BP Pulse Ox 97.7 F 104 H 18 108/65 95 06/10/20 23:53 06/10/20 23:53 06/10/20 23:53 06/10/20 23:53 06/10/20 23:53 Intake & Output 06/10/20 06/11/20 06/12/20 06:59 06:59 06:59 Intake Total 3788 2676 Output Total 880 1290 Balance 2908 1386 Weight 60.3 kg 60.3 kg General appearance: PRESENT: no acute distress GI/Abdominal exam: PRESENT: other - operative dressing removed. [place] intact. Incision dry. Serobilious fluid in drain, 40 cc overnight Results Laboratory Results: 06/10/20 05:05 06/10/20 05:05 Assessment & Plan - Diagnosis (1) Chronic pain Is this a current diagnosis for this admission?: Yes Plan: Impression: Patient is 2 days status post exploratory surgery, portal lymphadenectomy, partial hepatectomy for gallbladder dysplasia, doing well, tolerating full liquid diet, meds, expectant drainage from peritoneal drain Plan: 1. Advance to regular diet; Hep-Lock IV 2. Anticipate discharge in the next 18 to 24 hours. Patient likely to go home with drain in place - Time Anticipated Discharge Disposition: Home, Self Care Anticipated Discharge Timeframe: within 24 hours
[2020-06-11] MEDS: FAMOTIDINE INJ/PF 20 MG/2 ML SDV IV SCH ×2 (09:03→21:09)
[2020-06-11] MEDS ORDERED: RIMEGEPANT SULFATE 75 MG PO PRN ×2 (15:43→15:50)
[2020-06-11] MEDS ORDERED: SERTRALINE HCL 100 MG PO SCH (15:45)
[2020-06-11] MEDS ORDERED: TOPIRAMATE 200 MG PO SCH (16:00)
[2020-06-11] MEDS ORDERED: TAPENTADOL HCL 100 MG PO SCH ×2 (16:00→22:00)
[2020-06-11] MEDS: OXYCODONE HCL IR 5 MG TABLET PO PRN ×2 (16:25→23:01)
[2020-06-11] MEDS ORDERED: GABAPENTIN ENACARBIL 300 MG PO SCH (18:00)
[2020-06-11] MEDS ORDERED: GABAPENTIN 300 MG CAPSULE PO SCH (18:00)
[2020-06-11] MEDS: SERTRALINE HCL 50 MG TABLET PO SCH (21:08)
[2020-06-11] MEDS: BUSPIRONE HCL 10 MG TABLET PO SCH (21:09)
[2020-06-12] MEDS: HYDROMORPHONE HCL INJ/PF 2 MG/ML AMPULE IV PRN ×2 (00:03→08:10)
[2020-06-12] MEDS: POTASSI CL 20 MEQ/D5-1/2NS 1L 1,000 ML IV PRN (00:10)
[2020-06-12] MEDS: OXYCODONE HCL IR 5 MG TABLET PO PRN (05:23)
[2020-06-12] MEDS: CEFAZOLIN 1 GM/D5W RTU 1 GM/50 ML RTUPB IV SCH (05:24)
[2020-06-12 09:28] LABS: ABSOLUTE EOSINOPHILS # (AUTO) 0.3 10^3/uL (0.0-0.6); ABSOLUTE LYMPHOCYTES (AUTO) 1.1 10^3/uL (0.5-4.7); ABSOLUTE MONOCYTES (AUTO) 0.6 10^3/uL (0.1-1.4); ABSOLUTE NEUT (AUTO) 7.5 10^3/uL (1.7-8.2); BASOPHILS % (AUTO) 0.5 % (0-2); EOSINOPHILS % (AUTO) 2.7 % (0-6); HEMATOCRIT 29.7 % (36.0-47.0); HEMOGLOBIN 9.7 g/dL (12.0-15.5); MEAN CORPUSCULAR HEMOGLOBIN 30.5 pg (27.0-33.4); MEAN CORPUSCULAR HGB CONC 32.7 g/dL (32.0-36.0); MEAN CORPUSCULAR VOLUME 93 fl (80-97); MONOCYTES % (AUTO) 5.9 % (3-13); PLATELET COUNT 191 10^3/uL (150-450); RED BLOOD COUNT 3.18 10^6/uL (3.72-5.28); RED CELL DISTRIBUTION WIDTH 13.3 % (11.5-14.0); SEGMENTED NEUTROPHILS % (AUTO) 78.9 % (42-78); TOTAL CELLS COUNTED % (AUTO) 100 %; WHITE BLOOD COUNT 9.5 10^3/uL (4.0-10.5)
[2020-06-12] MEDS: BUSPIRONE HCL 10 MG TABLET PO SCH (09:36)
[2020-06-12] MEDS: SERTRALINE HCL 50 MG TABLET PO SCH (09:36)
[2020-06-12] MEDS: FAMOTIDINE INJ/PF 20 MG/2 ML SDV IV SCH (09:36)
[2020-06-12 09:55] LABS: ALBUMIN 3.4 g/dL (3.5-5.0); ALKALINE PHOSPHATASE 100 U/L (38-126); ANION GAP 8 (5-19); ASPARTATE AMINO TRANSFERASE 83 U/L (14-36); BILIRUBIN,DIRECT 0.2 mg/dL (0.0-0.4); BILIRUBIN,TOTAL 0.6 mg/dL (0.2-1.3); BLOOD UREA NITROGEN 6 mg/dL (7-20); CALCIUM 8.9 mg/dL (8.4-10.2); CARBON DIOXIDE 29 mmol/L (22-30); CHLORIDE 102 mmol/L (98-107); GLUCOSE 120 mg/dL (75-110); POTASSIUM 3.9 mmol/L (3.6-5.0); TOTAL PROTEIN 6.1 g/dL (6.3-8.2)
[2020-06-12] MEDS ORDERED: TOPIRAMATE 200 MG PO SCH (10:00)
[2020-06-12 10:05] VITALS: BP 114/72
--- NOTE | 2020-06-12 10:58 | PDOC DISCHARGE SUMMARY ---
General - Admit/Disc Date/PCP Admission Date/Primary Care Provider: 06/09/20 06:55 SANTHOSH MCGOVERNGORDON Discharge Date: 06/12/20 - Discharge Diagnosis Final Diagnosis: Gallbladder dysplasia - Assessment Summary: The patient is a 55-year-old white female status post laparoscopic cholecystectomy with a diagnosis of gallbladder dysplasia. The patient was brought through ambulatory surgery to undergo brad hepatis lymph node dissection with partial hepatectomy. The procedure was performed by Dr. Yates and dictated accordingly. Patient had a drain placed. Postoperatively she did well, diet was advanced and patient ambulated without difficulty. Patient was maintained on narcotics consistent with her preoperative history of narcotic use under the direction of a pain management contract. She had moderate constipation. On the day of discharge her CBC and LFTs were fundamentally unchanged. She was felt to receive maximum benefit from hospitalization was discharged home with her drain, and instructions to record output and emptying. She will call [facility] on June 13, for follow-up appoint with Dr. Yates in 1 to 2 weeks. - Additional Information Resuscitation Status: Full Code Discharge Diet: As Tolerated Discharge Activity: Activity As Tolerated Referrals: KENNY YATES MD [ACTIVE STAFF] - 06/27/20 9:15 am Home Medications: Sertraline HCl [Zoloft] 100 mg PO Q12 03/25/18 Tapentadol HCl [Nucynta ER] 100 mg PO Q12 03/25/18 Gabapentin Enacarbil [Horizant] 300 mg PO QPM 04/16/20 Buspirone HCl [Buspar 10 mg Tablet] 10 mg PO Q12 06/06/20 Topiramate [Trokendi Xr] 200 mg PO DAILY 06/06/20 Oxycodone HCl [Oxy-Ir 5 mg Tablet] 15 mg PO Q6HP PRN 06/09/20 Rimegepant Sulfate [Nurtec Odt] 75 mg PO DAILYP PRN 06/09/20 History of Present Illiness History of Present Illness: JOSE ERWIN is a 55 year old female Physical Exam Vital Signs: Temp Pulse Resp BP Pulse Ox 98.8 F 101 H 17 114/72 78 L 06/12/20 10:04 06/12/20 10:04 06/12/20 10:04 06/12/20 10:04 12/20/20 10:04 Intake & Output 06/11/20 06/12/20 06/13/20 06:59 06:59 06:59 Intake Total 3676 1111 50 Output Total 7837 3691 Balance 6616 -4434 50 Weight 60.3 kg 58.6 kg Results Laboratory Results: WBC 9.5 10^3/uL (4.0-10.5) 06/12/20 09:18 RBC 3.18 10^6/uL (3.72-5.28) L 06/12/20 09:18 Hgb 9.7 g/dL (12.0-15.5) L 06/12/20 09:18 Hct 29.7 % (36.0-47.0) L 06/12/20 09:18 MCV 93 fl (80-97) 06/12/20 09:18 MCH 30.5 pg (27.0-33.4) 06/12/20 09:18 MCHC 32.7 g/dL (32.0-36.0) 06/12/20 09:18 RDW 13.3 % (11.5-14.0) 06/12/20 09:18 Plt Count 191 10^3/uL (150-450) 06/12/20 09:18 Lymph % (Auto) 12.0 % (13-45) L 06/12/20 09:18 [place] % (Auto) 5.9 % (3-13) 06/12/20 09:18 Eos % (Auto) 2.7 % (0-6) 06/12/20 09:18 Baso % (Auto) 0.5 % (0-2) 06/12/20 09:18 Absolute Neuts (auto) 7.5 10^3/uL (1.7-8.2) 06/12/20 09:18 Absolute Lymphs (auto) 1.1 10^3/uL (0.5-4.7) 06/12/20 09:18 Absolute Monos (auto) 0.6 10^3/uL (0.1-1.4) 06/12/20 09:18 Absolute Eos (auto) 0.3 10^3/uL (0.0-0.6) 06/12/20 09:18 Absolute Basos (auto) 0.0 10^3/uL (0.0-0.2) 06/12/20 09:18 Seg Neutrophils % 78.9 % (42-78) H 06/12/20 09:18 Sodium 138.6 mmol/L (137-145) 06/12/20 09:18 Potassium 3.9 mmol/L (3.6-5.0) 06/12/20 09:18 Chloride 102 mmol/L (98-107) 06/12/20 09:18 Carbon Dioxide 29 mmol/L (22-30) 06/12/20 09:18 Anion Gap 8 (5-19) 06/12/20 09:18 BUN 6 mg/dL (7-20) L 06/12/20 09:18 Creatinine 0.68 mg/dL (0.52-1.25) 06/12/20 09:18 Est GFR ( Amer) > 60 (>60) 06/12/20 09:18 Est GFR (MDRD) Non-Af > 60 (>60) 06/12/20 09:18 Glucose 120 mg/dL (75-110) H 06/12/20 09:18 Calcium 8.9 mg/dL (8.4-10.2) 06/12/20 09:18 Total Bilirubin 0.6 mg/dL (0.2-1.3) 06/12/20 09:18 Direct Bilirubin 0.2 mg/dL (0.0-0.4) 06/12/20 09:18 Neonat Total Bilirubin Not Reportable 06/12/20 09:18 Neonat Direct Bilirubin Not Reportable 06/12/20 09:18 Neonat Indirect Bili Not Reportable 06/12/20 09:18 AST 83 U/L (14-36) H 06/12/20 09:18 ALT 88 U/L (<35) H 06/12/20 09:18 Alkaline Phosphatase 100 U/L (38-126) 06/12/20 09:18 Total Protein 6.1 g/dL (6.3-8.2) L 06/12/20 09:18 Albumin 3.4 g/dL (3.5-5.0) L 06/12/20 09:18 Lipase 413.1 U/L (23-300) H 06/10/20 05:05 COVID-19 Source See comment 06/06/20 09:55 COVID-19 (LIMA) Not Detected (Not Detect) 06/06/20 09:55
== END 2020-06-12 12:30 | disposition home or self-care (01) | DRG 407 ==
LOC: INOR 06:55 → 4N 13:43
PROVIDERS: ADMIT Surgery; ATTEND Surgery
PROC: 07BD0ZX Excision of Aortic Lymphatic, Open Approach, Diagnostic (ICD-10-PCS; 2020-06-09)
PROC: 0FB10ZZ Excision of Right Lobe Liver, Open Approach (ICD-10-PCS; principal; 2020-06-09 09:00)
DX: C23 Malignant neoplasm of gallbladder (principal); K83.8 Other specified diseases of biliary tract; G89.18 Other acute postprocedural pain; G43.909 Migraine, unspecified, not intractable, without status migrainosus; M54.9 Dorsalgia, unspecified; Z79.891 Long term (current) use of opiate analgesic; Z79.899 Other long term (current) drug therapy; Z20.828 Contact with and (suspected) exposure to other viral communicable diseases; Z87.891 Personal history of nicotine dependence
CPT/HCPCS: 36415; 792; 80048; 80076; 83690; 85025; 85027; 87635; 88307; 88312; 94799; C1758; C9250; C9290; C9803; J0690; J1100; J1170; J1885; J2250; J2370; J2405; J2704; J2710; J3010; J3480; J3490; S0028

== ENCOUNTER → 2020-07-20 | Outpatient (CLI) | payer OTHER ==
--- NOTE | 2020-07-20 09:54 | RADIOLOGY REPORT (SQ) ---
EXAM DESCRIPTION: CT ABDOMEN WITH IV ORAL CONT IMAGES COMPLETED DATE/TIME: 07/20/2020 8:26 am REASON FOR STUDY: (C23)MALIGNANT NEOPLASM OF GALLBLADDER C23 MALIGNANT NEOPLASM OF GALLBLADDER COMPARISON: None. TECHNIQUE: CT scan of the abdomen performed with intravenous and with oral contrast using helical sc anning technique with dynamic intravenous contrast injection. Images reviewed with lung, soft tissue, and bone windows. Reconstructed coronal and sagittal MPR images reviewed. Delayed images for evaluat ion of the urinary system also acquired and evaluated. All images stored on PACS. All CT scanners at this facility use dose modulation, iterative reconstruc tion, and/or weight based dosing when appropriate to reduce radiation dose to as low as reasonably ac hievable (ALARA). [facility]: Dose Right [facility]: CareDose [facility]: Dose Right [facility]: Teradose 4D [facility]: [employer] medical CONTRAST TYPE AND DOSE: contrast/concentration: Isovue 350.00 mmol/ml; Total Contrast Delivered: 86. 0 ml; Total Saline Delivered: 69.0 ml RENAL FUNCTION: Creatinine 0.9. RADIATION DOSE: CT Rad equipment meets quality standard of care and radiation dose reduction techniq ues were employed. CTDIvol: 4.8 - 4.9 mGy. DLP: 314 mGy-cm. . LIMITATIONS: None. FINDINGS: LOWER CHEST: No significant findings. No nodules or infiltrates. LIVER: Normal size. There are few small, less than 5 mm, low-attenuation lesions. No dilated ducts. SPLEEN: Normal size. No focal lesions. PANCREAS: No masses. No significant calcifications. No adjacent inflammation or peripancreatic fluid collections. Pancreatic duct not dilated. GALLBLADDER: Surgically absent. Surgical clips and percutaneous drain. No abnormal fluid collection . ADRENAL GLANDS: No significant masses or asymmetry. RIGHT KIDNEY AND URETER: No solid masses. No significant calcifications. No hydronephrosis or hyd roureter. LEFT KIDNEY AND URETER: No solid masses. No significant calcifications. No hydronephrosis or hydr oureter. AORTA AND VESSELS: No aneurysm. No dissection. Renal arteries, SMA, celiac without stenosis. RETROPERITONEUM: No retroperitoneal adenopathy, hemorrhage or masses. BOWEL AND PERITONEAL CAVITY: No masses or inflammatory changes. No free fluid or peritoneal masses. APPENDIX: Not visualized. ABDOMINAL WALL: No masses. No hernias. BONES: No significant or acute findings. Hardware in the lumbar spine. OTHER: No other significant finding. IMPRESSION: 1. POSTCHOLECYSTECTOMY WITH SURGICAL CLIPS AND PERCUTANEOUS DRAIN. NO ABNORMAL FLUID COLLECTION. 2. A FEW SMALL, LESS THAN 5 MM, LOW-ATTENUATION LESIONS IN THE LIVER. TOO SMALL TO CHARACTERIZE BUT PROBABLY SMALL CYSTS. 3. NO OTHER SIGNIFICANT FINDINGS IN THE ABDOMEN. TECHNICAL DOCUMENTATION: JOB ID: [id number] Quality ID # [id number]: Final reports with documentation of one or more dose reduction techniques (e.g., Au tomated exposure control, adjustment of the mA and/or kV according to patient size, use of iterative reconstruction technique) 2010 [employer]- All Rights Reserved Reading location - IP/workstation name: [email or web address]
== END ==
LOC: RAD 07:58
PROVIDERS: ATTEND Surgery
DX: C23 Malignant neoplasm of gallbladder (principal); K76.9 Liver disease, unspecified
CPT/HCPCS: 74160; 82565

== ENCOUNTER → 2020-07-20 | Outpatient (CLI) | payer OTHER ==
[2020-07-20 10:32] LABS: ABSOLUTE EOSINOPHILS # (AUTO) 0.1 10^3/uL (0.0-0.6); ABSOLUTE LYMPHOCYTES (AUTO) 1.8 10^3/uL (0.5-4.7); ABSOLUTE MONOCYTES (AUTO) 0.5 10^3/uL (0.1-1.4); BASOPHILS % (AUTO) 0.4 % (0-2); EOSINOPHILS % (AUTO) 1.4 % (0-6); HEMATOCRIT 35.2 % (36.0-47.0); HEMOGLOBIN 11.4 g/dL (12.0-15.5); LYMPHOCYTES % (AUTO) 20.8 % (13-45); MEAN CORPUSCULAR HEMOGLOBIN 27.8 pg (27.0-33.4); MEAN CORPUSCULAR HGB CONC 32.4 g/dL (32.0-36.0); MEAN CORPUSCULAR VOLUME 86 fl (80-97); MONOCYTES % (AUTO) 5.7 % (3-13); PLATELET COUNT 349 10^3/uL (150-450); RED BLOOD COUNT 4.11 10^6/uL (3.72-5.28); RED CELL DISTRIBUTION WIDTH 15.4 % (11.5-14.0); SEGMENTED NEUTROPHILS % (AUTO) 71.7 % (42-78); TOTAL CELLS COUNTED % (AUTO) 100 %; WHITE BLOOD COUNT 8.4 10^3/uL (4.0-10.5)
[2020-07-20 11:09] LABS: ALBUMIN 3.9 g/dL (3.5-5.0); ALKALINE PHOSPHATASE 140 U/L (38-126); ANION GAP 13 (5-19); ASPARTATE AMINO TRANSFERASE 25 U/L (14-36); BILIRUBIN,DIRECT 0.2 mg/dL (0.0-0.4); BILIRUBIN,TOTAL 0.3 mg/dL (0.2-1.3); BLOOD UREA NITROGEN 8 mg/dL (7-20); CALCIUM 9.2 mg/dL (8.4-10.2); CARBON DIOXIDE 18 mmol/L (22-30); CHLORIDE 106 mmol/L (98-107); GLUCOSE 109 mg/dL (75-110); POTASSIUM 4.1 mmol/L (3.6-5.0); TOTAL PROTEIN 7.1 g/dL (6.3-8.2)
== END ==
LOC: OD 08:54
PROVIDERS: ATTEND Surgery
DX: C23 Malignant neoplasm of gallbladder (principal)
CPT/HCPCS: 36415; 80053; 85025

== ENCOUNTER → 2020-07-22 | Outpatient (CLI) | payer OTHER ==
--- NOTE | 2020-07-22 16:08 | RADIOLOGY REPORT (SQ) ---
EXAM DESCRIPTION: NM HIDA SCAN IMAGES COMPLETED DATE/TIME: 07/22/2020 3:17 pm REASON FOR STUDY: S/P CHOLECYSTECTOMY, R/O LEAK PER DR. YATES C23 MALIGNANT NEOPLASM OF GALLBLAD CHAS COMPARISON: None. RADIONUCLIDE AND DOSE: DOSAGE RADIONUCLIDE: 5 millicuries Tc99m Mebrofenin. DOSAGE MORPHINE: Not required. The route of agent administration: Intravenous TECHNIQUE: Serial imaging right upper quadrant up to 60 minutes following injection of radionuclide. Patient imaged AP and Right Lateral. LIMITATIONS: None. FINDINGS: LIVER: Normal visualization without areas of photopenia. INTRA-HEPATIC BILE DUCTS: Temporal visualization normal. No dilatation. COMMON BILE DUCT: Normal without dilatation or delayed visualization. GALLBLADDER: Surgically absent. OTHER: There begins to be accumulation of activity near the distal common bile duct at about 30 minut es. This increases through 60 minutes. IMPRESSION: There appears to be a bile leak. TECHNICAL DOCUMENTATION: JOB ID: [id number] 2010 [employer]- All Rights Reserved Reading location - IP/workstation name: [email or web address]
== END ==
LOC: RAD 12:41
PROVIDERS: ATTEND Surgery
DX: C23 Malignant neoplasm of gallbladder (principal)
CPT/HCPCS: 78226; A9537; Q9969